=== PATIENT | female | born 2005 | race African-American/Black ===

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

== ENCOUNTER 2024-01-22 23:07 | Emergency (ER) | payer OTHER, SELFPAY ==
[2024-01-22] MEDS ORDERED: NA CHLORIDE 0.9% 1,000 ML ONE (23:43)
[2024-01-23 00:01] LABS: Absolute Eosinophils 0.2 K/uL (0-0.5); Absolute Lymphocytes (CBC) 2.2 K/uL (0.7-4.9); Absolute Monocytes 0.2 K/uL (0.1-1.3); Absolute Neutrophil 2.3 K/uL (1.8-8.0); Basophils % 0.5 % (0-1.3); Eosinophils % 3.3 % (0-4.4); Hematocrit 42.8 % (36.0-45.0); Hemoglobin 14.2 g/dL (12.0-15.0); Lymphocytes % 44.5 % (15.3-44.8); MCH 30.2 pg (27.0-35.0); MCHC 33.3 g/dL (32.0-36.0); MCV 90.7 fL (80-100); MPV 7.9 fL (7.6-11.3); Monocytes % 4.7 % (3.3-12.3); Platelets 271 thou/uL (152-406); RBC Red Blood Cell Count 4.72 M/uL (3.86-4.86); Red Cell Distribution Width 13.2 % (12.1-15.2)
[2024-01-23 00:14] LABS: AST/SGOT 11 U/L (15-37); Albumin/Globulin Ratio 1.1 (1.1-1.8); Alkaline Phosphatase 72 U/L (45-117); Anion Gap 10.7 mEq/L (5.0-15.0); BUN Blood Urea Nitrogen 8 mg/dL (7-18); Bicarbonate 22 mEq/L (21-32); Bilirubin Total 1.1 mg/dL (0.2-1.0); Globulin 3.7 g/dL (2.3-3.5); Glomerular Filtration Rate 126 ml/min (=/>90); Glucose Level 89 mg/dL (74-106); Lipase 31 U/L (13-75); Potassium 3.7 mEq/L (3.5-5.1); Protein, Total 7.7 g/dL (6.4-8.2); Sodium Level 140 mEq/L (136-145)
[2024-01-23 00:19] LABS: ALT/SGPT < 14 U/L (13-56)
[2024-01-23 00:23] LABS: SARS-CoV-2 Antigen CONTROL BLUE LINE VIS/BG OK; SARS-CoV-2 Antigen Rapid Res Negative (Negative)
--- NOTE | 2024-01-23 00:33 | ER ---
Nurse's Notes [facility] Name: Elizabeth Devlin Age: 18 yrs Sex: Female : 2005 Arrival Date: 01/22/2024 Time: 23:07 Bed 5 Private MD: Diagnosis: Abdominal pain, Generalized Presentation: 01/21 23:17 Chief complaint: Parent and/or Guardian states: mother states that pt has had n/d for bm8 two days and night. she is keeping her hydrated but she seems like she is still in pain. Coronavirus screen: Vaccine status: Patient reports receiving the 2nd dose of the covid vaccine. At this time, the client does not indicate any symptoms associated with coronavirus-19. Ebola Screen: Patient negative for fever greater than or equal to 101.5 degrees Fahrenheit, and additional compatible Ebola Virus Disease symptoms Patient denies exposure to infectious person. Patient denies travel to an Ebola-affected area in the 21 days before illness onset. No symptoms or risks identified at this time. Initial Sepsis Screen: Does the patient meet any 2 criteria? No. Patient's initial sepsis screen is negative. Does the patient have a suspected source of infection? No. Patient's initial sepsis screen is negative. Risk Assessment: Do you want to hurt yourself or someone else? Patient reports no desire to harm self or others. Onset of symptoms was January 20, 2024. 23:17 Method Of Arrival: Ambulatory bm8 23:17 Acuity: HARIS 3 bm8 Triage Assessment: 23:19 General: Appears in no apparent distress. comfortable, Behavior is calm, cooperative, bm8 appropriate for age. Pain: Denies pain. EENT: No deficits noted. No signs and/or symptoms were reported regarding the EENT system. Neuro: Level of Consciousness is awake, alert, obeys commands, Oriented to person, place, time, situation. Cardiovascular: Capillary refill < 3 seconds Patient's skin is warm and dry. Respiratory: Airway is patent Trachea midline Respiratory effort is even, unlabored, Respiratory pattern is regular, symmetrical. GI: Abdomen is flat, non-distended, Bowel sounds present X 4 quads. Abd is soft and non tender X 4 quads. : No signs and/or symptoms were reported regarding the genitourinary system. Derm: No signs and/or symptoms reported regarding the dermatologic system. Musculoskeletal: No signs and/or symptoms reported regarding the musculoskeletal system. 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 - Infectious Disease History:: Denies. - Social history:: Smoking status: Patient denies any tobacco usage or history of. Patient/guardian denies using alcohol, street drugs. Screenin:[address] [facility] ED Fall Risk Assessment (Adult) History of falling in the last 3 months, tm6 including since admission No falls in past 3 months (0 pts) Confusion or Disorientation No (0 pts) Intoxicated or Sedated No (0 pts) Impaired Gait No (0 pts) Mobility Assist Device Used No (0 pt) Altered Elimination No (0 pt) Score/Fall Risk Level 0 - 2 = Low Risk Oriented to surroundings, Maintained a safe environment, Educated pt \T\ family on fall prevention, incl call for assistance when getting out of bed. Abuse screen: Denies threats or abuse. Denies injuries from another. Nutritional screening: No deficits noted. Tuberculosis screening: No symptoms or risk factors identified. Assessment: 23:45 General: Appears in no apparent distress. Behavior is calm, cooperative. Pain: tm6 Complains of pain in right upper quadrant and left upper quadrant. Neuro: Level of Consciousness is awake, alert, obeys commands, Oriented to person, non-verbal. Cardiovascular: Patient's skin is warm and dry. Respiratory: Airway is patent Respiratory effort is even, unlabored, Respiratory pattern is regular, symmetrical. GI: Abdomen is flat, non-distended, Abd is soft Abdomen is tender to palpation in right upper quadrant and left upper quadrant Reports upper abdominal pain, diarrhea. : No signs and/or symptoms were reported regarding the genitourinary system. EENT: No signs and/or symptoms were reported regarding the EENT system. Derm: No signs and/or symptoms reported regarding the dermatologic system. Musculoskeletal: No signs and/or symptoms reported regarding the musculoskeletal system. 01/22 00:43 Reassessment: Patient and/or family updated on plan of care and expected duration. Pain pc2 level reassessed. Discharge pending completion of IV fluids. 01:28 Reassessment: Patient appears in no apparent distress at this time. Patient and/or tm6 family updated on plan of care and expected duration. Pain level reassessed. Patient is alert, oriented x 3, equal unlabored respirations, skin warm/dry/pink. Vital Signs: 01/21 23:17 BP 124 / 88; Pulse 101; Resp 18; Temp 97.6; Pulse Ox 100% ; Weight 68.04 kg; Height 0 bm8 ft. 2 in. ; Pain 0/10; 01/22 00:23 BP 118 / 75; Pulse 92; Resp 18; Pulse Ox 100% on R/A; pc2 01:27 BP 107 / 79; Pulse 97; Resp 17; Temp 97.6(TE); Pulse Ox 100% on R/A; Pain 0/10; tm6 01/21 23:17 Body Mass Index 27473.48 (68.04 kg, 7 cm) - Percentile 99.8 % bm8 01/21 23:17 Pain Scale: Non-Verbal bm8 01:27 Pain Scale: Adult tm6 ED Course: 01/21 23:10 Patient arrived in ED. jj6 23:10 Maliha Garza FNP-C is [facility] kb 23:10 Mode Victor MD is Attending Physician. kb 23:19 Triage completed. bm8 23:19 Arm band placed on right wrist. EKG completed in triage. Results shown to MD. bm8 23:26 Terry Heart, RN is Primary Nurse. tm6 23:41 CBC with Diff Sent. tm6 23:41 CMP Sent. tm6 23:41 Lipase Sent. tm6 23:41 SARS-COV-2 Antigen Rapid Sent. tm6 23:41 Flu Sent. tm6 23:45 Patient has correct armband on for positive identification. Bed in low position. Call tm6 light in reach. Side rails up X 1. Adult w/ patient. Provided Education on: use of call guevara. Client placed on continuous cardiac and pulse oximetry monitoring. NIBP monitoring applied. Pulse ox on. NIBP on. Door closed. Noise minimized. Warm blanket given. 23:45 Missed attempt(s): 22 gauge in right antecubital area. Bleeding controlled, band aid tm6 applied, catheter tip intact. 23:55 Missed attempt(s): 20 gauge in left antecubital area. Bleeding controlled, band aid pc2 applied, catheter tip intact. 01/22 00:02 Inserted saline lock: 22 gauge in right hand, using aseptic technique. pc2 01:28 No provider procedures requiring assistance completed. IV discontinued, intact, tm6 bleeding controlled, No redness/swelling at site. Pressure dressing applied. Administered Medications: 00:02 Drug: NS 0.9% IV 1000 ml IV at 1000 ml once Route: IV; Rate: 1000 ml; Site: right hand; pc2 01:28 Follow up: IV Status: Completed infusion; IV Intake: 1000ml tm6 Medication: 01/21 23:45 VIS not applicable for this client. tm6 Intake: 01/22 01:28 IV: 1000ml; Total: 1000ml. tm6 Outcome: 00:33 Discharge ordered by . kb 01:29 Discharged to home ambulatory, with family, tm6 01:29 Condition: stable 01:29 Discharge instructions given to patient, family, Instructed on discharge instructions, follow up and referral plans. Demonstrated understanding of instructions, follow-up care, 01:29 Patient left the ED. tm6 Signatures: Maliha Garza, TRUCK MECHANIC APPRENTICE-Barron HERNANDEZP-Charlene Lora jj6 Terry Heart RN RN tm6 Troy Encarnacion RN RN bm8 Evelin howard, RN RN pc2
--- NOTE | 2024-01-23 00:33 | EDPHYS ---
Physician Documentation [facility] Name: Elizabeth Devlin Age: 18 yrs Sex: Female : 2005 Arrival Date: 01/22/2024 Time: 23:07 Bed 5 Private MD: ED Physician Mode Victor HPI: 01/21 23:29 This 18 yrs old Black Female presents to ER via Ambulatory with complaints of Abdominal kb Pain. 23:29 Pt is a 18 year old female who presents for abd pain. Mother states pt had an episode kb of diarrhea on so she gave some immodium and pt hasn't had any diarrhea since then. Denies nausea, vomiting, fever. States pt is nonverbal so it is hard to understand what is going on. States pt hasn't been sleeping so pt keeps waking her up telling her about diarrhea. States she doesn't know what else to do so she brought her in to make pt feel better. . 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 - Infectious Disease History:: Denies. - Social history:: Smoking status: Patient denies any tobacco usage or history of. Patient/guardian denies using alcohol, street drugs. ROS: 23:31 Constitutional: As per HPI kb Exam: 23:31 Constitutional: This is a well developed, well nourished patient who is awake, alert, kb and in no acute distress. Head/Face: Normocephalic, atraumatic. ENT: Moist Mucous membranes Cardiovascular: Regular rate Respiratory: Respirations even and unlabored. No increased work of breathing. Talking in full sentences Abdomen/GI: Soft, non-tender. No distention Skin: Warm, dry with normal turgor. Normal color. MS/ Extremity: Pulses equal, no cyanosis. Neurovascular intact. Full, normal range of motion. 23:31 Neuro: Exam negative for acute changes, Vital Signs: 23:17 BP 124 / 88; Pulse 101; Resp 18; Temp 97.6; Pulse Ox 100% ; Weight 68.04 kg; Height 0 bm8 ft. 2 in. ; Pain 0/10; 01/22 00:23 BP 118 / 75; Pulse 92; Resp 18; Pulse Ox 100% on R/A; pc2 01:27 BP 107 / 79; Pulse 97; Resp 17; Temp 97.6(TE); Pulse Ox 100% on R/A; Pain 0/10; tm6 01/21 23:17 Body Mass Index 43108.48 (68.04 kg, 7 cm) - Percentile 99.8 % bm8 01/21 23:17 Pain Scale: Non-Verbal bm8 01:27 Pain Scale: Adult tm6 MDM: 01/21 23:10 Patient medically screened. kb 23:31 Data reviewed: vital signs, nurses notes. kb 01/22 00:32 Differential diagnosis: non-specific abd pain, diarrhea. Test considered but Not kb performed: CT: ct abd considered, but pt has no abd tenderness, afebrile. Historians other than the Patient: Parent: mother. Counseling: I had a detailed discussion with the patient and/or guardian regarding the historical points, exam findings, and any diagnostic results supporting the discharge/admit diagnosis, lab results, the need for outpatient follow up, a family practitioner, to return to the emergency department if symptoms worsen or persist or if there are any questions or concerns that arise at home. 01/21 23:15 Order name: CBC with Diff; Complete Time: 00:20 kb 01/21 23:15 Order name: CMP; Complete Time: 00:20 kb 01/21 23:15 Order name: Lipase; Complete Time: 00:20 kb 01/21 23:15 Order name: Flu; Complete Time: 00:26 kb 01/21 23:15 Order name: SARS-COV-2 Antigen Rapid; Complete Time: 00:26 kb 01/21 23:15 Order name: IV Saline Lock; Complete Time: 00:03 kb 01/21 23:15 Order name: Labs collected and sent; Complete Time: 23:42 kb Administered Medications: 00:02 Drug: NS 0.9% IV 1000 ml IV at 1000 ml once Route: IV; Rate: 1000 ml; Site: right hand; pc2 01:28 Follow up: IV Status: Completed infusion; IV Intake: 1000ml tm6 Disposition Summary: 01/23/24 00:33 Discharge Ordered Notes: Location: Home kb Condition: Stable kb Diagnosis - Abdominal pain, Generalized kb Followup: kb - With: Emergency Department - When: As needed - Reason: Worsening of condition Followup: kb - With: Private Physician - When: 2 - 3 days - Reason: Recheck today's complaints, Continuance of care, Re-evaluation by your physician Discharge Instructions: - Discharge Summary Sheet kb - Abdominal Pain, Adult, [id number] kb Forms: - Medication Reconciliation Form kb - Antibiotic Education kb - Prescription Opioid Use kb - Patient Portal Instructions kb - Leadership Thank You Letter kb Signatures: Dispatcher [employer] EDMaliha Ramsey, KATEY-Barron DEL TORO-Troy Glynn, RN RN bm8 Evelin howard, RN RN pc2 Terry Heart RN tm6 Corrections: (The following items were deleted from the chart) 01/21 23:16 23:16 CBC+H.LAB.BRZ ordered. EDMS EDMS 23:16 23:16 COMPREHENSIVE METABOLIC PANEL+C.LAB.BRZ ordered. EDMS EDMS 23:16 23:16 LIPASE+C.LAB.BRZ ordered. EDMS EDMS 23:16 23:16 Test, Urine+UC.LAB.BRZ ordered. EDMS EDMS 23:16 23:16 Urinalysis+U.LAB.BRZ ordered. EDMS EDMS 23:16 23:16 Influenza Screen (A \T\ B)+BA.LAB.BRZ ordered. EDMS EDMS 23:16 23:16 SARS-COV-2 Antigen Rapid+I.LAB.BRZ ordered. EDMS EDMS
[2024-01-23 01:56] VITALS: BP 107/79; TEMP 97.6; O2SAT 100
== END 2024-01-23 01:29 | disposition home or self-care (01) ==
LOC: ER 23:07
DX: R10.84 Generalized abdominal pain (principal); R19.7 Diarrhea, unspecified; Z11.52 Encounter for screening for COVID-19
CPT/HCPCS: 36415; 80053; 83690; 85025; 87804; 87811; 96360; 99284; J7030

== ENCOUNTER 2024-02-04 11:41 | Emergency (ER) | payer SELFPAY ==
--- OUTSIDE RECORDS SUMMARY | 2024-02-04 11:44 | XMS REPORT | Continuity of Care Document ---
Author Name Unknown Address [address] [place] [address] [facility] thconnect Address [address] [place] [address] Care Team Providers Care Emr Specialist Name Role Phone PCP, PATIENT DOES NOT HAVE A Primary Care Physic tyson Unavailable RON ALEX Attending Clinician Unavailable DANIEL JACQUES Attending Clinician DANIEL Lux Attending Clinician Krissy krishna Nurse, [facility] Attending Clinician Unavailable Vinay Smallwood MD Attending Clinician [phone] VINAY SMALLWOOD Attending Clinician Unavailable Kitty Donaldson MD Attending Clinician [phone] Rupert Coughlin NP Attending Clinician [phone] RUPERT COUGHLIN Attending Clinician Unavailaniceto umanzor Doctor Unassigned, [place] Attending Clinician U SG Jeffrey Attending Clinician Unavail able Payers Payer Name Policy Type Policy Number Effective Date Expirati on Date Source Problems Condition Name Condition Details Condition Category Status Onset Date Resolution Date Last Treatment Date Treating Clinician Comments Source Menorrhagi a with regular cycle Menorrhagi a with regular cycle Disease Active 12-09 00:00: 00 [facility] 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 12-09 00:00: 00 [facility] Family history of blood clots Family history of blood clots Disease Active 12-09 00:00: 00 [facility] Allergies, Adverse Reactions, Alerts Allergy Name Allergy Type Status Severity Reaction(s) Onset Date Inactive Date Treating Clinician Comments Source NO KNOWN ALLERGIE S Drug Class Active [facility] Social History Social Habit Start Date Stop Date Quantity Comments Source [facility] Alcohol intake 2023-11-21 00:00:00 2023-11-21 00:00:00 Current non-drinker of alcohol (finding) [facility] History of Social function 2023-11-18 00:00:00 2023-11-18 00:00:00 [facility] Exposure to SARS-CoV-2 (event) 2022-11-28 00:00:00 2022-12-08 13:33:[address] [facility] Tobacco use and exposure 2022-12-08 00:00:00 2022-12-08 00:00:00 Smokeless tobacco non-user [facility] Tobacco Comment 2022-12-08 00:00:00 2022-12-08 00:00:[address] [facility] Sex Assigned At 2005 00:00:00 2005 00:00:00 [facility] Smoking Status Start Date Stop Date Source Never smoked tobacco [facility] Medications Ordered Medication Name Filled Medication Name Start Date Stop Date Current Medication? Ordering Clinician Indication Dosage Frequency Signature (SIG) Comments Components Source medroxyPROG ESTERone (DEPO-PROVE RA) injection 150 mg 11-17 14:15: 00 11-17 13:27 :00 No [id number] 150mg 150 mg, Intramuscu lar, ONCE, 1 dose, On Tue11/18/23 at 0915, Routine [facility] medroxyPROG ESTERone (DEPO-PROVE RA) injection 150 mg 08-26 15:15: 00 08-26 14:22 :00 No [id number] 150mg [facility] fluticasone propionate 110 mcg/actuati on inhaler 08-12 00:00: 00 Yes INHALE 1 PUFF BY MOUTH 2 TIMES PER DAY [facility] medroxyPROG ESTERone (DEPO-PROVE RA) injection 150 mg 2022-08 0 14:45: 00 06-03 14:06 :00 No [id number] 150mg [facility] medroxyPROG ESTERone (DEPO-PROVE RA) injection 150 mg 03-07 20:30: 00 03-07 19:42 :00 No [id number] 150mg [facility] levalbutero l 0.31 mg/3 mL nebulizer solution 03-07 14:41: 29 Yes 45mg Inhale 45 mg. [facility] medroxyPROG ESTERone (DEPO-PROVE RA) injection 150 mg 12-13 14:45: 00 12-13 13:53 :00 No [id number] 150mg [facility] levalbutero l 0.31 mg/3 mL nebulizer solution 12-13 08:39: 47 Yes 45mg Inhale 45 mg. [facility] montelukast 10 mg tablet 12-08 13:58: 04 Yes 10mg Take 1 tablet by mouth. [facility] loratadine (CLARITIN ORAL) 12-08 13:57: 46 Yes Take by mouth. [facility] beclomethas one dipropionat e (QVAR INHALE) 12-08 13:57: 46 Yes Inhale. [facility] estradiol (ESTRACE) 1 mg tablet 10-30 00:00: 00 03-07 00:00 :00 No 1mg Take 1 tablet by mouth daily. [facility] beclomethas one dipropionat e (QVAR INHALE) 09-14 14:40: 51 Yes Inhale. [facility] loratadine (CLARITIN ORAL) 09-14 14:39: 45 Yes Take by mouth. [facility] montelukast 10 mg tablet 2019-0 2-07 14:39: 45 Yes 10mg Take 10 mg by mouth. [facility] incontinenc e alarms (MISC. DEVICES MISC) 2014-0 05-05 00:00: 00 Yes 1{devic e} 1 Device. [facility] Immunizations Ordered Immunization Name Filled Immunization Name Date Status Comments Source SARS-COV-2 COVID-19 PFIZER VACCINE 2020-12-24 00:00:[address] [facility] SARS-COV-2 COVID-19 PFIZER VACCINE 2020-12-24 00:00:[address] [facility] SARS-COV-2 COVID-19 PFIZER VACCINE 2020-12-24 00:00:[address] [facility] SARS-COV-2 COVID-19 PFIZER VACCINE 2020-12-24 00:00:[address] [facility] SARS-COV-2 COVID-19 PFIZER VACCINE 2020-12-24 00:00:[address] [facility] SARS-COV-2 COVID-19 PFIZER VACCINE 2020-12-24 00:00:[address] [facility] SARS-COV-2 COVID-19 PFIZER VACCINE 2020-12-24 00:00:[address] [facility] SARS-COV-2 COVID-19 PFIZER VACCINE 2020-12-24 00:00:[address] [facility] SARS-COV-2 COVID-19 PFIZER VACCINE 2020-12-24 00:00:[address] [facility] SARS-COV-2 COVID-19 PFIZER VACCINE 2020-12-03 00:00:[address] [facility] SARS-COV-2 COVID-19 PFIZER VACCINE 2020-12-03 00:00:[address] [facility] SARS-COV-2 COVID-19 PFIZER VACCINE 2020-12-03 00:00:[address] [facility] SARS-COV-2 COVID-19 PFIZER VACCINE 2020-12-03 00:00:[address] [facility] SARS-COV-2 COVID-19 PFIZER VACCINE 2020-12-03 00:00:[address] [facility] SARS-COV-2 COVID-19 PFIZER VACCINE 2020-12-03 00:00:[address] [facility] SARS-COV-2 COVID-19 PFIZER VACCINE 2020-12-03 00:00:[address] [facility] SARS-COV-2 COVID-19 PFIZER VACCINE 2020-12-03 00:00:[address] [facility] SARS-COV-2 COVID-19 PFIZER VACCINE 2020-12-03 00:00:[address] [facility] SARS-COV-2 COVID-19 [address] V[address] Unknown Completed [facility] SARS-COV-2 COVID-19 [address] Unknown Com[address] [facility] SARS-COV-2 COVID-19 [address] VACC[address] Unknown Completed [facility] SARS-COV-2 COVID-19 [address] VACC[address] Unknown Completed [facility] SARS-COV-2 COVID-19 [address] VACC[address] Unknown Completed [facility] SARS-COV-2 COVID-19 [address] VACC[address] Unknown Completed [facility] SARS-COV-2 COVID-19 [address] V[address] Unknown Com[address] [facility] SARS-COV-2 COVID-19 [address] VACC[address] Unknown Completed [facility] SARS-COV-2 COVID-19 [address] VACC[address] Unknown Completed [facility] SARS-COV-2 COVID-19 [address] VACCINE Unknown Completed [facility] SARS-COV-2 COVID-19 [address] VACC[address] Unknown Completed [facility] SARS-COV-2 COVID-19 [address] V[address] Unknown Completed [facility] SARS-COV-2 COVID-19 [address] VACC[address] Unknown Completed [facility] SARS-COV-2 COVID-19 [address] VACC[address] Unknown Completed [facility] SARS-COV-2 COVID-19 [address] V[address] Unknown Completed [facility] SARS-COV-2 COVID-[address] V[address] Unknown Completed [facility] Vital Signs Vital Name Observation Time Observation Value Comments S ource Systolic blood pressure 2023-11-18 13:20:00 112 mm[Hg] [facility] Diastolic blood pressure 2023-11-18 13:20:00 75 mm[Hg] [facility] Heart rate 2023-11-18 13:20:00 87 /[facility] temperature 2023-11-18 13:20:[address] [facility] Respiratory rate 2023-11-18 13:20:00 16 /min [facility] Body height 2023-11-18 13:20:00 157.5 cm [facility] Body weight 2023-11-18 13:20:00 61.689 kg [facility] BMI 2023-11-18 13:20:00 24.87 kg/m2 [facility] Oxygen saturation in Arterial blood by Pulse oximetry 2023-11-18 13:20:00 99 /min [facility] Systolic blood pressure 2023-08-26 14:20:00 127 mm[Hg] [facility] Diastolic blood pressure 2023-08-26 14:20:00 85 mm[Hg] [facility] Heart rate 2023-08-26 14:20:00 93 /min [facility] Body temperature 2023-08-26 14:20:[address] [facility] Respiratory rate 2023-08-26 14:20:00 16 /min [facility] Body height 2023-08-26 14:20:00 157.5 cm [facility] Body weight 2023-08-26 14:20:00 62.37 kg [facility] BMI 2023-08-26 14:20:00 25.15 kg/m2 [facility] Body mass index (BMI) [Percentile] Per age and sex 2023-08-26 14:20:00 80.93 % [facility] Oxygen saturation in Arterial blood by Pulse oximetry 2023-08-26 14:20:00 99 /min [facility] Systolic blood pressure 2023-06-03 13:56:00 124 mm[Hg] [facility] Diastolic blood pressure 2023-06-03 13:56:00 82 mm[Hg] [facility] Heart rate 2023-06-03 13:56:00 82 /min [facility] acute hospital Body temperature 2023-06-03 13:56:[address] [facility] Respiratory rate 2023-06-03 13:56:00 16 /min [facility] Body height 2023-06-03 13:56:00 157.5 cm [facility] Body weight 2023-06-03 13:56:00 59.557 kg [facility] BMI 2023-06-03 13:56:00 24.02 kg/m2 [facility] Body mass index (BMI) [Percentile] Per age and sex 2023-06-03 13:56:00 74.69 % [facility] Oxygen saturation in Arterial blood by Pulse oximetry 2023-06-03 13:56:00 98 /min [facility] Systolic blood pressure 2023-03-07 19:40:00 127 mm[Hg] [facility] Diastolic blood pressure 2023-03-07 19:40:00 81 mm[Hg] [facility] Heart rate 2023-03-07 19:40:00 116 /min General acute hospital Body temperature 2023-03-07 19:40:[address] [facility] Respiratory rate 2023-03-07 19:40:00 16 /min [facility] Body height 2023-03-07 19:40:00 157.5 cm [facility] Body weight 2023-03-07 19:40:00 58.559 kg [facility] BMI 2023-03-07 19:40:00 23.61 kg/m2 [facility] Body mass index (BMI) [Percentile] Per age and sex 2023-03-07 19:40:00 72.29 % [facility] Oxygen saturation in Arterial blood by Pulse oximetry 2023-03-07 19:40:00 97 /min [facility] Systolic blood pressure 2022-12-13 13:40:00 120 mm[Hg] [facility] Diastolic blood pressure 2022-12-13 13:40:00 76 mm[Hg] [facility] Heart rate 2022-12-13 13:40:00 80 /min [facility] acute hospital Respiratory rate 2022-12-13 13:40:00 16 /min [facility] Body height 2022-12-13 13:40:00 157.5 cm [facility] Body weight 2022-12-13 13:40:00 56.382 kg [facility] BMI 2022-12-13 13:40:00 22.73 kg/m2 [facility] Body mass index (BMI) [Percentile] Per age and sex 2022-12-13 13:40:00 65.42 % [facility] Oxygen saturation in Arterial blood by Pulse oximetry 2022-12-13 13:40:00 98 /min [facility] Systolic blood pressure 2022-12-08 18:57:00 112 mm[Hg] [facility] Diastolic blood pressure 2022-12-08 18:57:00 72 mm[Hg] [facility] Heart rate 2022-12-08 18:57:00 95 /min General acute hospital Respiratory rate 2022-12-08 18:57:00 18 /min [facility] Body height 2022-12-08 18:57:00 157.5 cm [facility] Body weight 2022-12-08 18:57:00 57.153 kg [facility] BMI 2022-12-08 18:57:00 23.05 kg/m2 [facility] Body mass index (BMI) [Percentile] Per age and sex 2022-12-08 18:57:00 68.38 % [facility] Procedures Procedure Date / Time Performed Performing Clinicia n Source POCT TEST 2022-12-13 00:00:[address] [facility] ASSIGNMENT OF BENEFITS 2022-12-08 18:31:03 Docto r Unassigned, [place] [facility] Encounters Start Date/Time End Date/Time Encounter Type Admission Type Attending Clinicians Care Facility Care Department Encounter ID Source 2023-11-18 08:30:00 2023-11-18 08:30:00 Nurse Visit Nurse, Peg [facility] Vinay Smallwood [facility] [id number] 350.1.13.10 [id number] 134 [id number] [facility] 2023-11-18 08:30:00 2023-11-18 08:20:27 Outpatient R VINAY SMALLWOOD [facility] [id number] [facility] 2023-11-18 00:00:00 2023-11-18 00:00:00 Letter (Out) Kitty Donaldson [facility] [id number] 350.1.13.10 [id number] [id number] [facility] 2023-08-26 08:30:00 2023-08-26 08:30:00 Nurse Visit Nurse, [facility] Vinay Smallwood [facility] [id number] 350.1.13.10 4.2.7.2.686 [id number] [facility] 2023-08-26 08:30:00 2023-08-26 08:21:56 Outpatient R CL VINAY [facility] [id number] [facility] 2023-08-26 00:00:00 2023-08-26 00:00:00 Letter (Out) Cl [facility] 1.20.114 350.1.13.10 [id number] [id number] [facility] 2023-06-08 09:30:00 2023-06-08 09:30:00 Outpatient R [facility] [id number] [facility] 2023-06-08 09:30:00 2023-06-08 09:30:00 Outpatient R [facility] [id number] [facility] 2023-06-03 10:45:00 2023-06-03 10:45:00 Nurse Visit Nurse, [facility] Daniel Borges [facility] 1.2840.114 350.1.13.10 4.2.7.2.686 [id number] [facility] 2023-06-03 10:45:00 2023-06-03 08:56:37 Outpatient R DANIEL BORGES MARISOL [facility] [id number] [facility] 2023-06-03 00:00:00 2023-06-03 00:00:00 Letter (Out) Priscilla Borgessol [facility] [id number] 350.1.13.10 4.2.7.2.686 [id number] 134 [id number] [facility] 2023-06-02 00:00:00 2023-06-02 00:00:00 Telephone Chhaya negrete [facility] 1.2.840.114 350.1.13.10 4.2.7.2.686 [id number] 134 [id number] [facility] 2023-05-30 15:45:00 2023-05-30 15:45:00 Outpatient R [facility] [id number] [facility] 2023-05-26 00:00:00 2023-05-26 00:00:00 [address] Smallwood Igor [facility] 1.2.840.114 350.1.13.10 4.2.7.2.686 [id number] [facility] 2023-03-07 16:00:00 2023-03-07 16:00:00 Nurse Visit Nurse, Peg [facility] 1.2.840.114 350.1.13.10 4.2.7.2.686 [id number] [facility] 2023-03-07 16:00:00 2023-03-07 14:38:42 [facility] [id number] [facility] 2022-12-13 09:00:00 2022-12-13 09:00:00 [facility] 1.2.840.114 350.1.13.10 4.2.7.2.686 [id number] [facility] 2022-12-13 09:00:00 2022-12-13 08:51:53 Outpatient R RUPERT COUGHLIN CHERYAL [facility] [id number] [facility] 2022-12-13 08:00:00 2022-12-13 08:00:00 Outpatient R [facility] [id number] [facility] 2022-12-13 00:00:00 2022-12-13 00:00:00 Letter (Out) Caprice [facility] [id number] 350.1.13.10 4.2.7.2.686 [id number] [facility] 2022-12-09 00:00:00 2022-12-09 00:00:00 Letter (Out) Caprice [facility] 1.2.840.114 350.1.13.10 4.2.7.2.686 [id number] [facility] 2022-12-09 00:00:00 2022-12-09 00:00:00 Telephone Martínashley [facility] 1.2.840.114 350.1.13.10 4.2.7.2.686 [id number] [facility] 2022-12-09 00:00:00 2022-12-09 00:00:00 Letter (Out) Caprice [facility] 1.2.840.114 350.1.13.10 4.2.7.2.686 [id number] [facility] 2022-12-08 14:00:00 2022-12-08 14:15:07 Outpatient R RUPERT COUGHLIN KATRUPERT EUBANKS [facility] [id number] [facility] 2022-12-08 14:00:00 2022-12-08 14:15:07 Office Visit Rupert [facility] 1.2.840.114 350.1.13.10 4.2.7.2.686 [id number] 134 [id number] [facility] 2022-12-08 00:00:00 2022-12-08 00:00:00 Orders Only Doctor Unassigned, [place] [facility] 1.2.840.114 350.1.13.10 4.2.7.2.686 [id number] [facility] 2020-12-24 08:30:00 2020-12-24 08:30:00 Outpatient SG RENEE [facility] [id number] [facility] 2020-12-03 11:30:00 2020-12-03 11:30:00 Outpatient SG RENEE [facility] [id number] [facility] 2020-12-03 09:10:00 2020-12-03 09:10:00 Outpatient [facility] [id number] [facility] Results Test Description Test Time Test Comments Results Result Co mments Source [facility]
--- NOTE | 2024-02-04 13:07 | RAD REPORT ---
EXAM DESCRIPTION: CT - Head Brain Wo Cont - 02/04/2024 12:30 pm CLINICAL HISTORY: HEADACHE COMPARISON: No comparisons TECHNIQUE: Noncontrast head CT images were obtained without IV contrast. Multiplanar reformats were generated and reviewed. All CT scans are performed using dose optimization technique as appropriate and may include automated exposure control or mA/KV adjustment according to patient size. FINDINGS: No intracranial hemorrhage, mass, or edema. Midline structures are unremarkable. Normal ventricular caliber for age. Crow-white matter differentiation is preserved, without evidence of acute infarct. No abnormal extra- axial fluid collections. Mastoid air cells and visualized portions of the paranasal sinuses are clear. No acute bony findings. IMPRESSION: No evidence of an acute intracranial process.
--- NOTE | 2024-02-04 13:33 | EDPHYS ---
Physician Documentation [facility] Name: Elizabeth Devlin Age: 18 yrs Sex: Female : 2005 Arrival Date: 02/04/2024 Time: 11:41 Bed 15 Private MD: ED Physician Zak Verdugo HPI: 02/03 13:28 This 18 yrs old Black Female presents to ER via Ambulatory with complaints of Headache. rn 13:28 The patient complains of pain to the forehead. The patient describes the headache as rn aching. Onset: The symptoms/episode began/occurred yesterday. Associated signs and symptoms: Pertinent negatives: altered mental status, dizziness, fever, neck stiffness, rash, vision changes, vision loss, vomiting, weakness, vertigo. Headache History: Denies prior headaches. The symptoms are alleviated by nothing. the symptoms are aggravated by nothing. The patient has not experienced similar symptoms in the past. Mother reports headache since yesterday. Took [id number] medication with some improvement but did not resolve. Patient is nonverbal so mother brought her in for evaluation. No fever. No neck stiffness. No vomiting. No history of seizures.. Historical: - Allergies: 12:11 No Known Allergies; cm10 - PMHx: 12:11 Asthma; Can only take liquid medication; Intellectual speech impediment disability; cm10 - PSHx: 12:11 foot sx; cm10 - Immunization history:: Adult Immunizations up to date. - Infectious Disease History:: Denies. - Social history:: Smoking status: Patient denies any tobacco usage or history of. - Family history:: not pertinent. - Hospitalizations: : No recent hospitalization is reported. ROS: 13:28 Constitutional: Negative for fever, chills, and weight loss, Neck: Negative for injury, rn pain, and swelling, Cardiovascular: Negative for chest pain, palpitations, and edema, Respiratory: Negative for shortness of breath, cough, wheezing, and pleuritic chest pain, Abdomen/GI: Negative for abdominal pain, nausea, vomiting, diarrhea, and constipation, MS/Extremity: Negative for injury and deformity, Skin: Negative for injury, rash, and discoloration, Neuro: Positive for headache Exam: 13:28 Constitutional: This is a well developed, well nourished patient who is awake, alert, rn and in no acute distress. Head/Face: Normocephalic, atraumatic. Eyes: Pupils equal round and reactive to light, extra-ocular motions intact. Lids and lashes normal. Conjunctiva and sclera are non-icteric and not injected. Cornea within normal limits. Periorbital areas with no swelling, redness, or edema. Neck: No meningismus Cardiovascular: tachycardic no pulse deficits. Respiratory: No increased work of breathing, no retractions or nasal flaring. Abdomen/GI: Soft, nontender Neuro: Awake and alert, GCS 15. Cranial nerves II-XII grossly intact. Motor strength 5/5 in all extremities. Sensory grossly intact. Cerebellar exam normal. Normal gait. Vital Signs: 12:11 BP 111 / 71; Pulse 106; Resp 18; Temp 98.7; Pulse Ox 100% on R/A; Weight 59.2 kg; cm10 Height 63 in. ; Pain 10/10; 13:43 BP 123 / 87; Pulse 101; Resp 19; Pulse Ox 100% ; as6 12:11 Body Mass Index 23.12 (59.20 kg, 160.02 cm) - Percentile 66.1 % cm10 12:11 Pain Scale: Adult cm10 Carly Coma Score: 13:28 Eye Response: spontaneous(4). Motor Response: obeys commands(6). Verbal Response: rn oriented(5). Total: 15. MDM: 11:48 Patient medically screened. rn 13:28 Differential diagnosis: migraine, neoplasm, sinusitis, tension headache, vasomotor rn headache. Data reviewed: vital signs, nurses notes, radiologic studies, CT scan, and as a result, I will discharge patient. Counseling: I had a detailed discussion with the patient and/or guardian regarding the historical points, exam findings, and any diagnostic results supporting the discharge/admit diagnosis, radiology results, the need for outpatient follow up, to return to the emergency department if symptoms worsen or persist or if there are any questions or concerns that arise at home. Response to treatment: the patient's symptoms have mildly improved after treatment, and as a result, I will discharge patient. Special discussion: I discussed with the patient/guardian in detail that at this point there is no indication for admission to the hospital. It is understood, however, that if the symptoms persist or worsen the patient needs to return immediately for re-evaluation. ED course: CT head images negative for acute abnormality. I have personally reviewed all of the results, including but not limited to imaging deemed necessary to safely discharge this patient at this time. All results given to and printed out for patient. I personally went over all the results with the patient and answered all questions. Patient will follow-up with PCP and or specialist as discussed. Return precautions given and understood.. 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
--- NOTE | 2024-02-04 13:33 | ER ---
Nurse's Notes [facility] Name: Elizabeth Devlin Age: 18 yrs Sex: Female : 2005 Arrival Date: 02/04/2024 Time: 11:41 Bed 15 Private MD: Diagnosis: Headache Presentation: 02/03 12:11 Chief complaint: Parent and/or Guardian states: Headache onset last night, no other cm10 symptoms. Coronavirus screen: Client denies travel out of the [place] in the last 14 days. At this time, the client does not indicate any symptoms associated with coronavirus-19. Ebola Screen: Patient denies travel to an Ebola-affected area in the 21 days before illness onset. No symptoms or risks identified at this time. Initial Sepsis Screen: Does the patient meet any 2 criteria? HR > 90 bpm. Does the patient have a suspected source of infection? No. Patient's initial sepsis screen is negative. Risk Assessment: Do you want to hurt yourself or someone else? Patient reports no desire to harm self or others. Onset of symptoms was February 04, 2024. 12:11 Method Of Arrival: Ambulatory cm10 12:11 Acuity: HARIS 3 cm10 Triage Assessment: 12:12 Headache History: Denies prior headaches. General: Appears in no apparent distress. cm10 comfortable, Behavior is calm, cooperative, appropriate for age. Neuro: No deficits noted. Level of Consciousness is awake, alert, obeys commands, Oriented to Appropriate for age. Respiratory: No deficits noted. Airway is patent Respiratory effort is even, unlabored, Respiratory pattern is regular, symmetrical. Historical: - Allergies: 12:11 No Known Allergies; cm10 - PMHx: 12:11 Asthma; Can only take liquid medication; Intellectual speech impediment disability; cm10 - PSHx: 12:11 foot sx; cm10 - Immunization history:: Adult Immunizations up to date. - Infectious Disease History:: Denies. - Social history:: Smoking status: Patient denies any tobacco usage or history of. - Family history:: not pertinent. - Hospitalizations: : No recent hospitalization is reported. Screenin:37 [facility] ED Fall Risk Assessment (Adult) History of falling in the last 3 months, hb including since admission No falls in past 3 months (0 pts) Confusion or Disorientation No (0 pts) Intoxicated or Sedated No (0 pts) Impaired Gait No (0 pts) Mobility Assist Device Used No (0 pt) Altered Elimination No (0 pt) Score/Fall Risk Level 0 - 2 = Low Risk Oriented to surroundings, Maintained a safe environment, Educated pt \T\ family on fall prevention, incl call for assistance when getting out of bed. Abuse screen: Denies threats or abuse. Denies injuries from another. Nutritional screening: No deficits noted. Tuberculosis screening: No symptoms or risk factors identified. Assessment: 13:43 Reassessment: Patient appears in no apparent distress at this time. as6 Vital Signs: 12:11 BP 111 / 71; Pulse 106; Resp 18; Temp 98.7; Pulse Ox 100% on R/A; Weight 59.2 kg; cm10 Height 63 in. ; Pain 10/10; 13:43 BP 123 / 87; Pulse 101; Resp 19; Pulse Ox 100% ; as6 12:11 Body Mass Index 23.12 (59.20 kg, 160.02 cm) - Percentile 66.1 % cm10 12:11 Pain Scale: Adult cm10 Carly Coma Score: 13:28 Eye Response: spontaneous(4). Motor Response: obeys commands(6). Verbal Response: rn oriented(5). Total: 15. ED Course: 11:44 Patient arrived in ED. gm2 11:48 Zak Verdugo MD is Attending Physician. rn 12:06 Paco Tabares, MAGGIE is Primary Nurse. bp 12:11 Triage completed. cm10 12:[address] via stretcher. cm10 12:12 Arm band placed on Patient placed in a hallway bed, on a stretcher, on pulse oximetry. cm10 12:32 CT Head Brain wo Cont In Process Unspecified. EDMS 12:37 Patient has correct armband on for positive identification. Provided Education on: use hb of call light. 13:43 No provider procedures requiring assistance completed. Patient did not have IV access as6 during this emergency room visit. Administered Medications: No medications were administered Medication: 12:37 VIS not applicable for this client. hb Outcome: 13:32 Discharge ordered by . rn 13:43 Discharged to home ambulatory, with family, as6 13:43 Condition: stable 13:43 Discharge instructions given to patient, Instructed on discharge instructions, follow up and referral plans. Demonstrated understanding of instructions, follow-up care, 13:44 Patient left the ED. as6 Signatures: Dispatcher [employer] EDMS Zak Verdugo MD MD rn Baxter, Heather RN RN Paco Fritz RN RN bp Slawson, Ashby, RN RN as6 Agustina Leger RN RN cm10 Yesica Lacey [facility]
[2024-02-04 14:02] VITALS: BP 123/87; TEMP 98.7; O2SAT 100
== END 2024-02-04 13:44 | disposition home or self-care (01) ==
LOC: ER 11:41
DX: R51.9 Headache, unspecified (principal)
CPT/HCPCS: 70450; 99284

== ENCOUNTER 2024-06-06 10:24 | Emergency (ER) | payer SELFPAY ==
--- OUTSIDE RECORDS SUMMARY | 2024-06-06 10:28 | XMS REPORT | Continuity of Care Document ---
Author Name Unknown Address [address] [place] [address] [facility] thconnect Address [address] [place] [address] Care Team Providers Care [employer]ist Name Role Phone Pcp, Patient Does Not Have A Primary Care Physic ytson Visit, [facility] Nurse Attending Clinician Karey Benoit Attending Clinician + Ron Borjas Attending Clinician [phone] KAREY GARDNER Attending Clinician Unavail able RON ORONA Attending Clinician Unavailable DANIEL JACQUES Attending Clinician DANIEL Lux Attending Clinician Krissy krishna Nurse, [facility] Attending Clinician Unavailable Vinay Smallwood MD Attending Clinician [phone] VINAY SMALLWOOD Attending Clinician Unavailable Kitty Donaldson MD Attending Clinician [phone] Rupert Coughlin NP Attending Clinician [phone] RUPERT COUGHLIN Attending Clinician Unavailaniceto noé Doctor Unassigned, Norlina Attending Clinician U [facility] Jeffrey Attending Clinician Unavail able Payers Payer Name Policy Type Policy Number Effective Date Expirati on Date Source Problems Condition Name Condition Details Condition Category Status Onset Date Resolution Date Last Treatment Date Treating Clinician Comments Source Menorrhagi a with regular cycle Menorrhagi a with regular cycle Disease Active 12-09 00:00: 00 [facility] 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 12-09 00:00: 00 [facility] Family history of blood clots Family history of blood clots Disease Active 12-09 00:00: 00 [facility] Allergies, Adverse Reactions, Alerts Allergy Name Allergy Type Status Severity Reaction(s) Onset Date Inactive Date Treating Clinician Comments Source NO KNOWN ALLERGIE S Drug Class Active [facility] Social History Social Habit Start Date Stop Date Quantity Comments Source Gender identity [facility] Alcoholic beverage intake 2024-05-16 00:00:00 2024-05-16 00:00:00 Current non-drinker of alcohol (finding) [facility] History of Social function 2024-02-22 00:00:00 2024-02-22 00:00:00 [facility] Alcohol intake 2023-11-21 00:00:00 2023-11-21 00:00:00 Current non-drinker of alcohol (finding) [facility] Exposure to SARS-CoV-2 (event) 2022-11-28 00:00:00 2022-12-08 13:33:00 Not sure [facility] Tobacco use and exposure 2022-12-08 00:00:00 2022-12-08 00:00:00 Smokeless tobacco non-user [facility] Tobacco Comment 2022-12-08 00:00:00 2022-12-08 00:00:00 No smoke exposure [facility] Sex assigned at 2004 00:00:00 2005 00:00:00 [facility] Smoking Status Start Date Stop Date Source Never smoked tobacco [facility] Medications Ordered Medication Name Filled Medication Name Start Date Stop Date Current Medication? Ordering Clinician Indication Dosage Frequency Signature (SIG) Comments Components Source medroxyPROG ESTERone (DEPO-PROVE RA) syringe 150 mg 02-21 15:45: 00 04-17 15:44 :00 No [id number] 150mg 150 mg, Intramuscu lar, [id number], 5 doses, First dose on Tue02/22/24 at 1045, Last dose on Tue01/23/25 at 1045, Routine [facility] albuterol sulfate (PROAIR HFA INHALE) 02-21 10:02: 58 Yes Inhale. [facility] levalbutero l 0.31 mg/3 mL nebulizer solution 02-21 10:02: 58 Yes 45mg Inhale 45 mg. [facility] medroxyPROG ESTERone (DEPO-PROVE RA) injection 150 mg 11-17 14:15: 00 11-17 13:27 :00 No [id number] 150mg 150 mg, Intramuscu lar, ONCE, 1 dose, On Tue11/18/23 at 0915, Routine [facility] medroxyPROG ESTERone (DEPO-PROVE RA) injection 150 mg 08-26 15:15: 00 08-26 14:22 :00 No [id number] 150mg [facility] fluticasone propionate 110 mcg/actuati on inhaler 08-12 00:00: 00 Yes INHALE 1 PUFF BY MOUTH 2 TIMES PER DAY [facility] medroxyPROG ESTERone (DEPO-PROVE RA) injection 150 mg 2022-08 14:45: 00 06-03 14:06 :00 No [id number] 150mg [facility] medroxyPROG ESTERone (DEPO-PROVE RA) injection 150 mg 03-07 20:30: 00 03-07 19:42 :00 No [id number] 150mg [facility] levalbutero l 0.31 mg/3 mL nebulizer solution 03-07 14:41: 29 Yes 45mg Inhale 45 mg. [facility] medroxyPROG ESTERone (DEPO-PROVE RA) injection 150 mg 12-13 14:45: 00 12-13 13:53 :00 No [id number] 150mg [facility] levalbutero l 0.31 mg/3 mL nebulizer solution 12-13 08:39: 47 Yes 45mg Inhale 45 mg. [facility] montelukast 10 mg tablet 12-08 13:58: 04 Yes 10mg Take 1 tablet by mouth. [facility] loratadine (CLARITIN ORAL) 12-08 13:57: 46 Yes Take by mouth. [facility] beclomethas one dipropionat e (QVAR INHALE) 12-08 13:57: 46 Yes Inhale. [facility] estradiol (ESTRACE) 1 mg tablet 10-30 00:00: 00 03-07 00:00 :00 No 1mg Take 1 tablet by mouth daily. [facility] beclomethas one dipropionat e (QVAR INHALE) 09-14 14:40: 51 Yes Inhale. [facility] loratadine (CLARITIN ORAL) 09-14 14:39: 45 Yes Take by mouth. [facility] montelukast 10 mg tablet 09-14 14:39: 45 Yes 10mg Take 10 mg by mouth. [facility] incontinenc e alarms (MISC. DEVICES MISC) 05-05 00:00: 00 Yes 1{devic e} 1 Device. [facility] Immunizations Ordered Immunization Name Filled Immunization Name Date Status Comments Source SARS-COV-2 COVID-19 PFIZER VACCINE 2020-12-24 00:00:00 Completed [facility] SARS-COV-2 COVID-19 PFIZER VACCINE 2020-12-24 00:00:00 Completed [facility] SARS-COV-2 COVID-19 PFIZER VACCINE 2020-12-24 00:00:00 Completed [facility] SARS-COV-2 COVID-19 PFIZER VACCINE 2020-12-24 00:00:00 Completed [facility] SARS-COV-2 COVID-19 PFIZER VACCINE 2020-12-24 00:00:00 Completed [facility] SARS-COV-2 COVID-19 PFIZER VACCINE 2020-12-24 00:00:00 Completed [facility] SARS-COV-2 COVID-19 PFIZER VACCINE 2020-12-24 00:00:00 Completed [facility] SARS-COV-2 COVID-19 PFIZER VACCINE 2020-12-24 00:00:00 Completed [facility] SARS-COV-2 COVID-19 PFIZER VACCINE 2020-12-24 00:00:00 Completed [facility] SARS-COV-2 COVID-19 PFIZER VACCINE 2020-12-03 00:00:00 Completed [facility] SARS-COV-2 COVID-19 PFIZER VACCINE 2020-12-03 00:00:00 Completed [facility] SARS-COV-2 COVID-19 PFIZER VACCINE 2020-12-03 00:00:00 Completed [facility] SARS-COV-2 COVID-19 PFIZER VACCINE 2020-12-03 00:00:00 Completed [facility] SARS-COV-2 COVID-19 PFIZER VACCINE 2020-12-03 00:00:00 Completed [facility] SARS-COV-2 COVID-19 PFIZER VACCINE 2020-12-03 00:00:00 Completed [facility] SARS-COV-2 COVID-19 PFIZER VACCINE 2020-12-03 00:00:00 Completed [facility] SARS-COV-2 COVID-19 PFIZER VACCINE 2020-12-03 00:00:00 Completed [facility] SARS-COV-2 COVID-19 PFIZER VACCINE 2020-12-03 00:00:00 Completed [facility] SARS-COV-2 COVID-19 PFIZER VACCINE Unknown Completed [facility] SARS-COV-2 COVID-19 PFIZER VACCINE Unknown Completed [facility] SARS-COV-2 COVID-19 PFIZER VACCINE Unknown Completed [facility] SARS-COV-2 COVID-19 PFIZER VACCINE Unknown Completed [facility] SARS-COV-2 COVID-19 PFIZER VACCINE Unknown Completed [facility] SARS-COV-2 COVID-19 PFIZER VACCINE Unknown Completed [facility] SARS-COV-2 COVID-19 PFIZER VACCINE Unknown Completed [facility] SARS-COV-2 COVID-19 PFIZER VACCINE Unknown Completed [facility] SARS-COV-2 COVID-19 PFIZER VACCINE Unknown Completed [facility] SARS-COV-2 COVID-19 PFIZER VACCINE Unknown Completed [facility] Vital Signs Vital Name Observation Time Observation Value Comments S ource Systolic blood pressure 2024-05-16 13:35:00 120 mm[Hg] [facility] Diastolic blood pressure 2024-05-16 13:35:00 73 mm[Hg] [facility] Heart rate 2024-05-16 13:35:00 81 /min [facility] Body temperature 2024-05-16 13:35:00 36.5 Nilda [facility] Respiratory rate 2024-05-16 13:35:00 19 /min [facility] Body height 2024-05-16 13:35:00 157.5 cm [facility] Body weight 2024-05-16 13:35:00 58.514 kg [facility] BMI 2024-05-16 13:35:00 23.59 kg/m2 [facility] Systolic blood pressure 2024-02-22 14:55:00 115 mm[Hg] [facility] Diastolic blood pressure 2024-02-22 14:55:00 77 mm[Hg] [facility] Heart rate 2024-02-22 14:55:00 85 /min [facility] Body temperature 2024-02-22 14:55:00 35.89 Nilda [facility] Respiratory rate 2024-02-22 14:55:00 18 /min [facility] Body height 2024-02-22 14:55:00 157.5 cm [facility] Body weight 2024-02-22 14:55:00 59.33 kg [facility] BMI 2024-02-22 14:55:00 23.92 kg/m2 [facility] Systolic blood pressure 2023-11-18 13:20:00 112 mm[Hg] [facility] Diastolic blood pressure 2023-11-18 13:20:00 75 mm[Hg] [facility] Heart rate 2023-11-18 13:20:00 87 /min [facility] Body temperature 2023-11-18 13:20:00 36.72 Nilda [facility] Respiratory rate 2023-11-18 13:20:00 16 /min [facility] Body height 2023-11-18 13:20:00 157.5 cm [facility] Body weight 2023-11-18 13:20:00 61.689 kg [facility] BMI 2023-11-18 13:20:00 24.87 kg/m2 [facility] Oxygen saturation in Arterial blood by Pulse oximetry 2023-11-18 13:20:00 99 /min [facility] Systolic blood pressure 2023-08-26 14:20:00 127 mm[Hg] [facility] Diastolic blood pressure 2023-08-26 14:20:00 85 mm[Hg] [facility] Heart rate 2023-08-26 14:20:00 93 /min [facility] Body temperature 2023-08-26 14:20:00 36.89 Nilda [facility] Respiratory rate 2023-08-26 14:20:00 16 /min [facility] Body height 2023-08-26 14:20:00 157.5 cm [facility] Body weight 2023-08-26 14:20:00 62.37 kg [facility] BMI 2023-08-26 14:20:00 25.15 kg/m2 [facility] Body mass index (BMI) [Percentile] Per age and sex 2023-08-26 14:20:00 80.93 % [facility] Oxygen saturation in Arterial blood by Pulse oximetry 2023-08-26 14:20:00 99 /min [facility] Systolic blood pressure 2023-06-03 13:56:00 124 mm[Hg] [facility] Diastolic blood pressure 2023-06-03 13:56:00 82 mm[Hg] [facility] Heart rate 2023-06-03 13:56:00 82 /min [facility] Body temperature 2023-06-03 13:56:00 36.89 Nilda [facility] Respiratory rate 2023-06-03 13:56:00 16 /min [facility] Body height 2023-06-03 13:56:00 157.5 cm [facility] Body weight 2023-06-03 13:56:00 59.557 kg [facility] BMI 2023-06-03 13:56:00 24.02 kg/m2 [facility] Body mass index (BMI) [Percentile] Per age and sex 2023-06-03 13:56:00 74.69 % [facility] Oxygen saturation in Arterial blood by Pulse oximetry 2023-06-03 13:56:00 98 /min [facility] Systolic blood pressure 2023-03-07 19:40:00 127 mm[Hg] [facility] Diastolic blood pressure 2023-03-07 19:40:00 81 mm[Hg] [facility] Heart rate 2023-03-07 19:40:00 116 /min [facility] Body temperature 2023-03-07 19:40:00 36.56 Nilda [facility] Respiratory rate 2023-03-07 19:40:00 16 /min [facility] Body height 2023-03-07 19:40:00 157.5 cm [facility] Body weight 2023-03-07 19:40:00 58.559 kg [facility] BMI 2023-03-07 19:40:00 23.61 kg/m2 [facility] Body mass index (BMI) [Percentile] Per age and sex 2023-03-07 19:40:00 72.29 % [facility] Oxygen saturation in Arterial blood by Pulse oximetry 2023-03-07 19:40:00 97 /min [facility] Systolic blood pressure 2022-12-13 13:40:00 120 mm[Hg] [facility] Diastolic blood pressure 2022-12-13 13:40:00 76 mm[Hg] [facility] Heart rate 2022-12-13 13:40:00 80 /min [facility] Respiratory rate 2022-12-13 13:40:00 16 /min [facility] Body height 2022-12-13 13:40:00 157.5 cm [facility] Body weight 2022-12-13 13:40:00 56.382 kg [facility] BMI 2022-12-13 13:40:00 22.73 kg/m2 [facility] Body mass index (BMI) [Percentile] Per age and sex 2022-12-13 13:40:00 65.42 % [facility] Oxygen saturation in Arterial blood by Pulse oximetry 2022-12-13 13:40:00 98 /min [facility] Systolic blood pressure 2022-12-08 18:57:00 112 mm[Hg] [facility] Diastolic blood pressure 2022-12-08 18:57:00 72 mm[Hg] [facility] Heart rate 2022-12-08 18:57:00 95 /min [facility] Respiratory rate 2022-12-08 18:57:00 18 /min [facility] Body height 2022-12-08 18:57:00 157.5 cm [facility] Body weight 2022-12-08 18:57:00 57.153 kg [facility] BMI 2022-12-08 18:57:00 23.05 kg/m2 [facility] Body mass index (BMI) [Percentile] Per age and sex 2022-12-08 18:57:00 68.38 % [facility] Procedures Procedure Date / Time Performed Performing Clinicia n Source POCT TEST 2022-12-13 00:00:00 Cale Coughlin [facility] ASSIGNMENT OF BENEFITS 2022-12-08 18:31:03 Docto r Unassigned, Norlina [facility] Encounters Start Date/Time End Date/Time Encounter Type Admission Type Attending Clinicians Care Facility Care Department Encounter ID Source 2024-05-16 09:00:00 2024-05-16 09:00:00 Nurse Visit Visit, Oleg Nurse Karey Gardner Visit, Oleg Nurse [facility] RF TEST ENGINEER [facility] CHILD [facility] 1.2.840.114 350.1.13.10 4.2.7.2.686 [id number] [facility] 2024-05-16 00:00:00 2024-05-16 08:52:28 Letter (Out) Ron Orona [facility] RF TEST [facility] 1..840.114 350.1.13.10 4.2.7.2.686 [id number] [facility] 2024-05-16 00:00:00 2024-05-16 08:49:33 Letter (Out) Ron Orona [facility] RF TEST ENG[facility]ER [facility] 1..840.114 350.1.13.10 4.2.7.2.686 [id number] [facility] 2024-05-16 09:00:00 2024-05-16 08:47:20 Outpatient R KAREY GARDNER [facility] [id number] [facility] 2024-03-30 00:00:00 2024-03-30 11:28:44 Telephone Ron Orona [facility] RF TEST ENGINEER [facility] 1..840.114 350.1.13.10 4.2.7.2.686 [id number] [facility] 2024-02-22 09:30:00 2024-02-22 10:46:27 Outpatient R RON ORONA [facility] [id number] [facility] 2024-02-22 09:30:00 2024-02-22 10:46:27 Office Visit Ron Orona [facility] RF TEST ENGINEER [facility] 1.2.840.114 350.1.13.10 4.2.7.2.686 [id number] [facility] 2024-02-16 09:30:00 2024-02-16 09:30:00 Outpatient R ABIRON [facility] [id number] [facility] 2023-11-18 08:30:00 2023-11-18 08:30:00 Nurse Visit Nurse, [facility] 1.2840.114 350.1.13.10 4.2.7.2.686 [id number] 134 [id number] [facility] 2023-11-18 08:30:00 2023-11-18 08:20:27 Outpatient R CL [facility] [id number] [facility] 2023-11-18 00:00:00 2023-11-18 00:00:00 Letter (Out) Kitty Donaldson [facility] 1.840.114 350.1.13.10 4.2.7.2.686 [id number] [facility] 2023-08-26 08:30:00 2023-08-26 08:30:00 [facility] 1.840.114 350.1.13.10 4.2.7.2.686 [id number] [facility] 2023-08-26 08:30:00 2023-08-26 08:21:56 Outpatient R CL VINAY [facility] [id number] [facility] 2023-08-26 00:00:00 2023-08-26 00:00:00 Letter (Out) Cl [facility] 1.840.114 350.1.13.10 4.2.7.2.686 [id number] [facility] 2023-06-08 09:30:00 2023-06-08 09:30:00 Outpatient R [facility] [id number] [facility] 2023-06-08 09:30:00 2023-06-08 09:30:00 Outpatient R [facility] [id number] [facility] 2023-06-03 10:45:00 2023-06-03 10:45:00 Nurse Visit Nurse, [facility] Garcia-Brenda s, [facility] 1.2.840.114 350.1.13.10 4.2.7.2.686 [id number] [facility] 2023-06-03 10:45:00 2023-06-03 08:56:37 Outpatient R ZAC Negrete, DANIELTHAD [facility] [id number] [facility] 2023-06-03 00:00:00 2023-06-03 00:00:00 Letter (Out) DeeBrenda s, Daniel [facility] 1.2.840.114 350.1.13.10 4.2.7.2.686 [id number] [facility] 2023-06-02 00:00:00 2023-06-02 00:00:00 Telephone Zac negrete Daniel [facility] 1.2.840.114 350.1.13.10 4.2.7.2.686 [id number] [facility] 2023-05-30 15:45:00 2023-05-30 15:45:00 Outpatient R [facility] [id number] [facility] 2023-05-26 00:00:00 2023-05-26 00:00:00 Telephone Vinay Smallwood [facility] 1.2.840.114 350.1.13.10 4.2.7.2.686 [id number] [facility] 2023-03-07 16:00:00 2023-03-07 16:00:00 [facility] 1.2.840.114 350.1.13.10 4.2.7.2.686 [id number] [facility] 2023-03-07 16:00:00 2023-03-07 14:38:42 Outpatient R RUPERT COUGHLIN CHERYAL [facility] [id number] [facility] 2022-12-13 09:00:00 2022-12-13 09:00:00 [facility] 1.2.840.114 350.1.13.10 4.2.7.2.686 [id number] [facility] 2022-12-13 09:00:00 2022-12-13 08:51:53 Outpatient R RUPERT COUGHLIN CHERYAL [facility] [id number] [facility] 2022-12-13 08:00:00 2022-12-13 08:00:00 Outpatient R [facility] [id number] [facility] 2022-12-13 00:00:00 2022-12-13 00:00:00 Letter (Out) [facility] 1.2.840.114 350.1.13.10 4.2.7.2.686 [id number] [facility] 2022-12-09 00:00:00 2022-12-09 00:00:00 Letter (Out) Katemersonshellyashley [facility] 1.2.840.114 350.1.13.10 4.2.7.2.686 [id number] [facility] 2022-12-09 00:00:00 2022-12-09 00:00:00 [facility] 1.2.840.114 350.1.13.10 4.2.7.2.686 [id number] [facility] 2022-12-09 00:00:00 2022-12-09 00:00:00 Letter (Out) Caprice [facility] 1.2.840.114 350.1.13.10 4.2.7.2.686 [id number] [facility] 2022-12-08 14:00:00 2022-12-08 14:15:07 Outpatient R KATEMERSONSHELLYJOYCE MEDEROSCADY STEPHENSLAMBERTO [facility] [id number] [facility] 2022-12-08 14:00:00 2022-12-08 14:15:07 [facility] 1.2.840.114 350.1.13.10 4.2.7.2.686 [id number] [facility] 2022-12-08 00:00:00 2022-12-08 00:00:00 Orders Only Doctor Unassigned, Norlina [facility] 1.2.840.114 350.1.13.10 4.2.7.2.686 [id number] [facility] 2020-12-24 08:30:00 2020-12-24 08:30:00 Outpatient SG RENEE [facility] [id number] [facility] 2020-12-03 11:30:00 2020-12-03 11:30:00 Outpatient SG RENEE [facility] [id number] [facility] 2020-12-03 09:10:00 2020-12-03 09:10:00 Outpatient [facility] [id number] [facility] Results Test Description Test Time Test Comments Results Result Co mments Source [facility] Notes Date/Time Note Provider Source 2024-03-30 11:28:23 Called MOP, advised no recall at this time. MOP verbalized understanding. Kinsey Felipe RN 03/30/24 11:28 AM Kinsey Felipe RN [facility] 2024-03-30 09:13:37 Nael Moon is a 18 year old female Mother of pt Arcelia is calling requesting to speak with a nurse. She is asking if there has been a recall on depo provera injections. Please contact her at [phone]. Carol Leon [facility]
[2024-06-06] MEDS ORDERED: ONDANSETRON 4 MG/2 ML VIAL ONE (10:49)
[2024-06-06] MEDS ORDERED: NA CHLORIDE 0.9% 1,000 ML ONE (10:52)
[2024-06-06 11:23] LABS: Absolute Eosinophils 0.1 K/uL (0-0.5); Absolute Lymphocytes (CBC) 1.6 K/uL (0.7-4.9); Absolute Monocytes 0.3 K/uL (0.1-1.3); Absolute Neutrophil 2.2 K/uL (1.8-8.0); Basophils % 0.5 % (0-1.3); Eosinophils % 3.1 % (0-4.4); Hematocrit 39.8 % (36.0-45.0); Hemoglobin 13.1 g/dL (12.0-15.0); Lymphocytes % 37.6 % (15.3-44.8); MCH 29.9 pg (27.0-35.0); MCHC 32.9 g/dL (32.0-36.0); MCV 91.1 fL (80-100); MPV 7.2 fL (7.6-11.3); Monocytes % 6.5 % (3.3-12.3); Neutrophils % 52.3 % (41.7-73.7); Nucleated Red Blood Cells % 0.1 % (0-0); Platelets 256 thou/uL (152-406); RBC Red Blood Cell Count 4.36 M/uL (3.86-4.86)
[2024-06-06 11:42] LABS: Albumin 3.5 g/dL (3.4-5.0); Albumin/Globulin Ratio 0.9 (1.1-1.8); Anion Gap 7.5 mEq/L (5.0-15.0); Globulin 3.8 g/dL (2.3-3.5); Potassium 3.5 mEq/L (3.5-5.1); Protein, Total 7.3 g/dL (6.4-8.2)
--- NOTE | 2024-06-06 15:29 | ER ---
Nurse's Notes [facility] Name: Elizabeth Devlin Age: 18 yrs Sex: Female : 2005 Arrival Date: 06/06/2024 Time: 10:24 Bed 13 Private MD: Diagnosis: Nausea with vomiting, unspecified;Diarrhea, unspecified Presentation: 06/06 10:35 Chief complaint: Patient states: N/V/D since Tuesday with low grade fever. Coronavirus ll1 screen: Client denies travel out of the [place] in the last 14 days. diarrhea, fatigue, fever, nausea, vomiting. Client presents with at least one sign or symptom that may indicate coronavirus-19. Standard/surgical mask placed on the client. Ebola Screen: Patient denies travel to an Ebola-affected area in the 21 days before illness onset. Initial Sepsis Screen: Does the patient meet any 2 criteria? No. Patient's initial sepsis screen is negative. Does the patient have a suspected source of infection? No. Patient's initial sepsis screen is negative. Risk Assessment: Do you want to hurt yourself or someone else? Patient reports no desire to harm self or others. Onset of symptoms was June 02, 2024. 10:35 Method Of Arrival: Ambulatory ll1 10:35 Acuity: HARIS 3 ll1 Triage Assessment: 10:37 General: Appears in no apparent distress. Behavior is calm, cooperative, appropriate ll1 for age. Pain: Complains of pain in abdomen Pain currently is 2 out of 10 on a pain scale. Quality of pain is described as crampy. GI: Reports cramping, diarrhea, nausea, vomiting. Historical: - Allergies: 10:29 No Known Allergies; ll1 - PMHx: 10:29 Asthma; Can only take liquid medication; Intellectual speech impediment disability; ll1 - PSHx: 10:29 foot sx; ll1 - Immunization history:: Adult Immunizations up to date. - Infectious Disease History:: Denies. - Social history:: Smoking status: Patient denies any tobacco usage or history of. Screenin:30 [facility] ED Fall Risk Assessment (Adult) History of falling in the last 3 months, rs5 including since admission No falls in past 3 months (0 pts) Confusion or Disorientation No (0 pts) Intoxicated or Sedated No (0 pts) Impaired Gait No (0 pts) Mobility Assist Device Used No (0 pt) Altered Elimination No (0 pt) Score/Fall Risk Level 0 - 2 = Low Risk Oriented to surroundings, Maintained a safe environment. Abuse screen: Denies threats or abuse. Nutritional screening: No deficits noted. Tuberculosis screening: No symptoms or risk factors identified. Assessment: 10:30 General: Appears in no apparent distress. uncomfortable, Behavior is calm, cooperative. rs5 Pain: Denies pain. Neuro: Level of Consciousness is awake, alert, obeys commands, Oriented to person, place, time, situation. Cardiovascular: Patient's skin is warm and dry. Respiratory: Airway is patent Respiratory effort is even, unlabored, Respiratory pattern is regular, symmetrical. GI: Abdomen is round non-distended, Abd is soft and non tender X 4 quads. Reports nausea. : No signs and/or symptoms were reported regarding the genitourinary system. EENT: No signs and/or symptoms were reported regarding the EENT system. Derm: Skin is intact, Skin is pink, warm \T\ dry. Musculoskeletal: Range of motion: intact in all extremities. 11:38 Reassessment: Patient and/or family updated on plan of care and expected duration. Pain rs5 level reassessed. Patient is alert, oriented x 3, equal unlabored respirations, skin warm/dry/pink. 12:23 Reassessment: Patient and/or family updated on plan of care and expected duration. Pain rs5 level reassessed. Patient is alert, oriented x 3, equal unlabored respirations, skin warm/dry/pink. 13:14 General: Attempted to collect urine in a hat via clean catch but patient had some me1 diarrhea that got into the specimen.. Vital Signs: 10:35 BP 132 / 77; Pulse 109; Resp 17; Temp 98.6; Pulse Ox 98% on R/A; Pain 2/10; ll1 11:00 BP 124 / 87; Pulse 112; Resp 14; Pulse Ox 99% ; me1 12:00 BP 111 / 81; Pulse 108; Resp 15; Pulse Ox 100% ; me1 13:00 BP 121 / 87; Pulse 102; Resp 14; Pulse Ox 99% ; me1 14:00 BP 114 / 85; Pulse 98; Resp 15; Pulse Ox 100% ; me1 15:00 BP 108 / 77; Pulse 93; Resp 16; Pulse Ox 100% ; me1 15:43 BP 106 / 75; Pulse 98; Resp 16; Temp 98.4; Pulse Ox 99% ; me1 10:35 Pain Scale: Adult ll1 ED Course: 10:28 Patient arrived in ED. mg5 10:29 Thalia Orantes is Attending Physician. ci 10:29 Arm band placed on Patient placed in an exam room, on a stretcher. ll1 10:30 Patient has correct armband on for positive identification. Bed in low position. Call rs5 light in reach. Side rails up X2. 10:30 No provider procedures requiring assistance completed. rs5 10:37 Triage completed. ll1 10:50 Inserted saline lock: 24 gauge in right antecubital area, using aseptic technique. rs5 Blood collected. Flushed with 10 mL NS. 11:01 Brooks Vanegas, RN is Primary Nurse. rs5 16:05 Provided Education on: discharge instructions . rs5 16:08 IV discontinued, intact, bleeding controlled, No redness/swelling at site. Pressure rs5 dressing applied. Administered Medications: 11:15 Drug: Ondansetron IVP 4 mg IVP once; over 2 minutes Route: IVP; Site: right antecubital;rs5 14:35 Follow up: Response: No adverse reaction; Nausea is decreased me1 11:15 Drug: NS 0.9% IV 1000 ml IV at 1 bolus Per protocol; to be given as a bolus over 60 rs5 minutes Route: IV; Rate: 1 bolus; Site: right antecubital; 14:35 Follow up: Response: No adverse reaction; IV Status: Completed infusion; IV Intake: me1 1000ml Medication: 10:37 VIS not applicable for this client. rs5 Intake: 14:35 IV: 1000ml; Total: 1000ml. me1 Outcome: 15:29 Discharge ordered by . ci 16:08 Discharged to home ambulatory, rs5 16:08 Condition: stable rs5 16:08 Condition: stable 16:08 Discharge instructions given to patient, family, Instructed on discharge instructions, follow up and referral plans. Demonstrated understanding of instructions, follow-up care, 16:09 Patient left the ED. ll1 Signatures: Freida Ramsey RN RN 1 Brooks Vanegas, RN RN rs5 Magaly Armenta RN RN me1 Yolanda Harman mg5 IhealexisunekwuThalia
--- NOTE | 2024-06-06 15:29 | EDPHYS ---
Physician Documentation [facility] Name: Elizabeth Devlin Age: 18 yrs Sex: Female : 2005 Arrival Date: 06/06/2024 Time: 10:24 Bed 13 Private MD: ED Physician Thalia Orantes HPI: 06/06 14:36 This 18 yrs old Black Female presents to ER via Ambulatory with complaints of Fever, ci Vomiting. 14:36 Is a 18-year-old female with PMH asthma, intellectual disability who presents to the ED ci with chief complaint of nausea vomiting and diarrhea that began about 5 days ago. Patient's mother has been trying Pedialyte with no improvement. Diarrhea has improved but patient has been unable to keep any foods down.. Historical: - Allergies: : No Known Allergies; ll1 - PMHx: 10: Asthma; Can only take liquid medication; Intellectual speech impediment disability; ll1 - PSHx: 10: foot sx; ll1 - Immunization history:: Adult Immunizations up to date. - Infectious Disease History:: Denies. - Social history:: Smoking status: Patient denies any tobacco usage or history of. ROS: 20:21 Constitutional: Negative for fever, chills, and weight loss, ci 20:21 Abdomen/GI: Positive for abdominal pain, nausea, vomiting, and diarrhea, 20:30 Constitutional: Positive for poor PO intake, Negative for body aches, ci Exam: 20:20 Constitutional: This is a well developed, well nourished patient who is awake, alert, ci and in no acute distress. Head/Face: Normocephalic, atraumatic. Eyes: Pupils equal round and reactive to light, extra-ocular motions intact. Lids and lashes normal. Conjunctiva and sclera are non-icteric and not injected. Cornea within normal limits. Periorbital areas with no swelling, redness, or edema. Cardiovascular: Regular rate and rhythm with a normal S1 and S2. No gallops, murmurs, or rubs. Normal PMI, no JVD. No pulse deficits. Respiratory: Lungs have equal breath sounds bilaterally, clear to auscultation and percussion. No rales, rhonchi or wheezes noted. No increased work of breathing, no retractions or nasal flaring. Abdomen/GI: Soft, non-tender, with normal bowel sounds. No distension or tympany. No guarding or rebound. No evidence of tenderness throughout. Skin: Warm, dry with normal turgor. Normal color with no rashes, no lesions, and no evidence of cellulitis. MS/ Extremity: Pulses equal, no cyanosis. Neurovascular intact. Full, normal range of motion. Neuro: Awake and alert, GCS 15, oriented to person, place, time, and situation. Cranial nerves II-XII grossly intact. Motor strength 5/5 in all extremities. Sensory grossly intact. Cerebellar exam normal. Normal gait. Vital Signs: 10:35 BP 132 / 77; Pulse 109; Resp 17; Temp 98.6; Pulse Ox 98% on R/A; Pain 2/10; ll1 11:00 BP 124 / 87; Pulse 112; Resp 14; Pulse Ox 99% ; me1 12:00 BP 111 / 81; Pulse 108; Resp 15; Pulse Ox 100% ; me1 13:00 BP 121 / 87; Pulse 102; Resp 14; Pulse Ox 99% ; me1 14:00 BP 114 / 85; Pulse 98; Resp 15; Pulse Ox 100% ; me1 15:00 BP 108 / 77; Pulse 93; Resp 16; Pulse Ox 100% ; me1 15:43 BP 106 / 75; Pulse 98; Resp 16; Temp 98.4; Pulse Ox 99% ; me1 10:35 Pain Scale: Adult ll1 MDM: 10:29 Medical Screening Exam initiated ci 15:22 Differential diagnosis: viral Infection, UTI, gastroenteritis, Colitis. Data reviewed: ci vital signs, nurses notes. Historians other than the Patient: Parent: HPI obtained from mother, patient has a history of intellectual disability, poor historian. Care significantly affected by the following chronic conditions: Asthma. ED course: Patient presents for evaluation of nausea/vomiting/diarrhea. She has no leukocytosis, no ANAIS. Patient was given antiemetic with significant improvement, hydrated with IV fluids. Patient p.o. challenge, tolerated well. No evidence of acute abdomen. Discussed CT with mother, shared decision making utilized, will defer at this time. Patient unable to provide urine sample in the ED. Denies any urinary symptoms. At this time will discharge patient with p.o. Zofran and close outpatient follow-up with PCP.. 06/06 10:44 Order name: CBC with Diff; Complete Time: 12:07 ci 06/06 12:21 Interpretation: Within normal limits: No leukocytosis or anemia. ci 06/06 10:44 Order name: CMP; Complete Time: 12:07 ci 06/06 12:22 Interpretation: No ANAIS, no electrolyte abnormality. ci 06/06 10:44 Order name: Lipase; Complete Time: 12:07 ci 06/06 10:44 Order name: IV Saline Lock; Complete Time: 11:23 ci 06/06 10:44 Order name: Labs collected and sent; Complete Time: 11:23 ci Administered Medications: 11:15 Drug: Ondansetron IVP 4 mg IVP once; over 2 minutes Route: IVP; Site: right antecubital;rs5 14:35 Follow up: Response: No adverse reaction; Nausea is decreased me1 11:15 Drug: NS 0.9% IV 1000 ml IV at 1 bolus Per protocol; to be given as a bolus over 60 rs5 minutes Route: IV; Rate: 1 bolus; Site: right antecubital; 14:35 Follow up: Response: No adverse reaction; IV Status: Completed infusion; IV Intake: me1 1000ml Disposition Summary: 06/06/24 15:29 Discharge Ordered Notes: Location: Home ci Condition: Stable ci Diagnosis - Nausea with vomiting, unspecified ci - Diarrhea, unspecified ci Followup: ci - With: Private Physician - When: 2 - 3 days - Reason: Recheck today's complaints, Re-evaluation by your physician Discharge Instructions: - Discharge Summary Sheet ci - Diarrhea, Adult ci - Nausea and Vomiting, Adult, [id number] ci Forms: - School release form ci - Medication Reconciliation Form ci - Antibiotic Education ci - Prescription Opioid Use ci - Patient Portal Instructions ci - Leadership Thank You Letter ci Prescriptions: - Zofran 4 mg Oral tablet - take 1 tablet ORAL route every 12 hours As needed; 15 tablet; Refills: 0, ci Product Selection Permitted Signatures: Dispatcher [employer] Freida Lewis RN RN ll1 rBooks Vanegas RN RN rs5 IheonunekThalia singh ci Magaly Armenta RN me1 Corrections: (The following items were deleted from the chart) 10:45 10:45 CBC+H.LAB.BRZ ordered. EDMS EDMS 10:45 10:45 COMPREHENSIVE METABOLIC PANEL+C.LAB.BRZ ordered. EDMS EDMS 10:45 10:45 LIPASE+C.LAB.BRZ ordered. EDMS EDMS 10:45 10:45 Test, Urine+UC.LAB.BRZ ordered. EDMS EDMS 10:45 10:45 Urinalysis+U.LAB.BRZ ordered. EDMS EDMS 20:31 15:22 ED course: Patient presents for evaluation of nausea/vomiting/diarrhea. She has ci no leukocytosis, no ANAIS. Patient was given antiemetic with significant improvement, hydrated with IV fluids. Patient p.o. challenge, tolerated well. Patient unable to provide urine sample in the ED. Denies any urinary symptoms. At this time will discharge patient with p.o. Zofran and close outpatient follow-up with PCP.. ci
[2024-06-06 16:21] VITALS: BP 106/75; TEMP 98.4; O2SAT 99
== END 2024-06-06 16:09 | disposition home or self-care (01) ==
LOC: ER 10:24
DX: R11.2 Nausea with vomiting, unspecified (principal); R19.7 Diarrhea, unspecified
CPT/HCPCS: 36415; 80053; 83690; 85025; 96361; 96374; 99284; J2405; J7030

== ENCOUNTER 2025-05-17 12:30 | Emergency (ER) | payer OTHER ==
--- OUTSIDE RECORDS SUMMARY | 2025-05-17 12:34 | XMS REPORT | Continuity of Care Document ---
Author Name Unknown Address [address] [facility] [address] [facility] [address] [place] [address] [facility] Address [address] [address] [place] [address] Care Team Providers Care C Engineer Name Role Phone PCP, PATIENT DOES NOT HAVE A Primary Care Physic tyson Unavailable Ron Borjas Attending Clinician [phone] [facility], [facility] Unava ilKarey Rondon Attending Clinician + KAREY GARDNER Attending Clinician Unavail able RON ORONA Attending Clinician Unavailable DANIEL JACQUES Attending Clinician DANIEL Lux Attending Clinician Krissy krishna Nurse, [facility] Attending Clinician Unavailable Vinay Smallwood MD Attending Clinician [phone] VINAY SMALLWOOD Attending Clinician Unavailable Kitty Donaldson MD Attending Clinician [phone] Rupert Coughlin NP Attending Clinician [phone] RUPERT COUGHLIN Attending Clinician Unavailaniceto umanzor Doctor Unassigned, [facility] Attending Clinician SG Smith Attending Clinician Unavail able Payers Payer Name Policy Type Policy Number Effective Date Expirati on Date Source Problems Condition Name Condition Details Condition Category Status Onset Date Resolution Date Last Treatment Date Treating Clinician Comments Source Menorrhagi a with regular cycle Menorrhagi a with regular cycle Disease Active 12-09 00:00: 00 [facility] 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 12-09 00:00: 00 [facility] Family history of blood clots Family history of blood clots Disease Active 12-09 00:00: 00 [facility] Allergies, Adverse Reactions, Alerts Allergy Name Allergy Type Status Severity Reaction(s) Onset Date Inactive Date Treating Clinician Comments Source NO KNOWN ALLERGIE S Drug Class Active [facility] Social History Social Habit Start Date Stop Date Quantity Comments Source [facility] ASSERTION Not [facility] Alcoholic beverage intake 2025-04-22 00:00:00 2025-04-22 00:00:00 Current non-drinker of alcohol (finding) [facility] History of Social function 2025-01-28 00:00:00 2025-01-28 00:00:00 [facility] Alcohol intake 2023-11-21 00:00:00 2023-11-21 00:00:00 Current non-drinker of alcohol (finding) [facility] Exposure to SARS-CoV-2 (event) 2022-11-28 00:00:00 2022-12-08 13:33:00 Not sure [facility] Tobacco use and exposure 2022-12-08 00:00:00 2022-12-08 00:00:00 Smokeless tobacco non-user [facility] Tobacco Comment 2022-12-08 00:00:00 2022-12-08 00:00:00 No smoke exposure [facility] Sex assigned at 2004 00:00:00 2005 00:00:00 [facility] Smoking Status Start Date Stop Date Source Never smoked tobacco [facility] Medications Ordered Medication Name Filled Medication Name Start Date Stop Date Current Medication? Ordering Clinician Indication Dosage Frequency Signature (SIG) Comments Components Source medroxyPROG ESTERone (DEPO-PROVE RA) syringe 150 mg 04-22 13:30: 00 06-16 14:29 :00 Yes [id number] 150mg 150 mg, Intramuscu lar, [id number], 5 doses, First dose on Tue04/22/25 at 0830, Last dose on Tue03/24/26 at 0830, Routine [facility] medroxyPROG ESTERone (DEPO-PROVE RA) syringe 150 mg 02-21 15:45: 00 01-28 12:56 :00 No [id number] 150mg 150 mg, Intramuscu lar, [id number], 5 doses, First dose on Tue02/22/24 at 1045, Last dose on Tue01/23/25 at 1045, Routine [facility] albuterol sulfate (PROAIR HFA INHALE) 02-21 10:02: 58 04-22 00:00 :00 No Inhale. [facility] levalbutero l 0.31 mg/3 mL nebulizer solution 02-21 10:02: 58 04-22 00:00 :00 No 45mg Inhale 45 mg. [facility] medroxyPROG ESTERone (DEPO-PROVE RA) injection 150 mg 11-17 14:15: 00 11-17 13:27 :00 No [id number] 150mg 150 mg, Intramuscu lar, ONCE, 1 dose, On Tue11/18/23 at 0915, Routine [facility] medroxyPROG ESTERone (DEPO-PROVE RA) injection 150 mg 08-26 15:15: 00 08-26 14:22 :00 No [id number] 150mg [facility] fluticasone propionate 110 mcg/actuati on inhaler 1-05 00:00: 00 Yes INHALE 1 PUFF BY MOUTH 2 TIMES PER DAY [facility] medroxyPROG ESTERone (DEPO-PROVE RA) injection 150 mg 2022-08 14:45: 00 06-03 14:06 :00 No [id number] 150mg [facility] medroxyPROG ESTERone (DEPO-PROVE RA) injection 150 mg 03-07 20:30: 00 03-07 19:42 :00 No [id number] 150mg [facility] levalbutero l 0.31 mg/3 mL nebulizer solution 03-07 14:41: 29 Yes 45mg Inhale 45 mg. [facility] medroxyPROG ESTERone (DEPO-PROVE RA) injection 150 mg 12-13 14:45: 00 12-13 13:53 :00 No [id number] 150mg [facility] levalbutero l 0.31 mg/3 mL nebulizer solution 12-13 08:39: 47 Yes 45mg Inhale 45 mg. [facility] montelukast 10 mg tablet 12-08 13:58: 04 Yes 10mg Take 1 tablet by mouth. [facility] loratadine (CLARITIN ORAL) 12-08 13:57: 46 Yes Take by mouth. [facility] beclomethas one dipropionat e (QVAR INHALE) 12-08 13:57: 46 Yes Inhale. [facility] estradiol (ESTRACE) 1 mg tablet 10-30 00:00: 00 03-07 00:00 :00 No 1mg Take 1 tablet by mouth daily. [facility] beclomethas one dipropionat e (QVAR INHALE) 09-14 14:40: 51 Yes Inhale. [facility] loratadine (CLARITIN ORAL) 09-14 14:39: 45 Yes Take by mouth. [facility] montelukast 10 mg tablet 09-14 14:39: 45 Yes 10mg Take 10 mg by mouth. [facility] incontinenc e alarms (MISC. DEVICES MISC) 2014-0 05-05 00:00: 00 04-22 00:00 :00 No 1{devic e} 1 Device. [facility] Immunizations Ordered Immunization Name Filled Immunization Name Date Status Comments Source Flu Injectable MDCK Pres-Free (FLUCELVAX) 2025-04-22 00:00:00 Completed [facility] SARS-COV-2 COVID-19 PFIZER VACCINE 2020-12-24 00:00:00 Completed [facility] SARS-COV-2 COVID-19 PFIZER VACCINE 2020-12-03 00:00:00 Completed [facility] Vital Signs Vital Name Observation Time Observation Value Comments S ource Systolic blood pressure 2025-04-22 13:04:00 113 mm[Hg] [facility] Diastolic blood pressure 2025-04-22 13:04:00 74 mm[Hg] [facility] Heart rate 2025-04-22 13:04:00 89 /min [facility] Body temperature 2025-04-22 13:04:00 36.22 Nilda [facility] Respiratory rate 2025-04-22 13:04:00 17 /min [facility] Body height 2025-04-22 13:04:00 157.5 cm [facility] Body weight 2025-04-22 13:04:00 53.723 kg [facility] BMI 2025-04-22 13:04:00 21.66 kg/m2 [facility] Systolic blood pressure 2025-01-28 12:54:00 111 mm[Hg] [facility] Diastolic blood pressure 2025-01-28 12:54:00 76 mm[Hg] [facility] Heart rate 2025-01-28 12:54:00 83 /min [facility] Body temperature 2025-01-28 12:54:00 36.67 Nilda [facility] Respiratory rate 2025-01-28 12:54:00 18 /min [facility] Body height 2025-01-28 12:54:00 157.5 cm [facility] Body weight 2025-01-28 12:54:00 53.524 kg Univ [facility] BMI 2025-01-28 12:54:00 21.58 kg/m2 [facility] Systolic blood pressure 2024-11-05 13:46:00 125 mm[Hg] [facility] Diastolic blood pressure 2024-11-05 13:46:00 81 mm[Hg] [facility] Heart rate 2024-11-05 13:46:00 93 /min Un[facility] Body temperature 2024-11-05 13:46:00 37.06 Nilda [facility] Respiratory rate 2024-11-05 13:46:00 16 /min [facility] Body height 2024-11-05 13:46:00 157.5 cm [facility] Body weight 2024-11-05 13:46:00 56.246 kg [facility] BMI 2024-11-05 13:46:00 22.68 kg/m2 [facility] Systolic blood pressure 2024-08-09 14:12:00 114 mm[Hg] [facility] Diastolic blood pressure 2024-08-09 14:12:00 77 mm[Hg] [facility] Heart rate 2024-08-09 14:12:00 86 /min [facility] Body temperature 2024-08-09 14:12:00 36.72 Nilda [facility] Respiratory rate 2024-08-09 14:12:00 17 /min [facility] Body height 2024-08-09 14:12:00 157.5 cm [facility] Body weight 2024-08-09 14:12:00 56.473 kg [facility] BMI 2024-08-09 14:12:00 22.77 kg/m2 [facility] Systolic blood pressure 2024-05-16 13:35:00 120 mm[Hg] [facility] Diastolic blood pressure 2024-05-16 13:35:00 73 mm[Hg] [facility] Heart rate 2024-05-16 13:35:00 81 /min [facility] Body temperature 2024-05-16 13:35:00 36.5 Nilda [facility] Respiratory rate 2024-05-16 13:35:00 19 /min [facility] Body height 2024-05-16 13:35:00 157.5 cm [facility] Body weight 2024-05-16 13:35:00 58.514 kg [facility] BMI 2024-05-16 13:35:00 23.59 kg/m2 [facility] Systolic blood pressure 2024-02-22 14:55:00 115 mm[Hg] [facility] Diastolic blood pressure 2024-02-22 14:55:00 77 mm[Hg] [facility] Heart rate 2024-02-22 14:55:00 85 /min [facility] Body temperature 2024-02-22 14:55:00 35.89 Nilda [facility] Respiratory rate 2024-02-22 14:55:00 18 /min [facility] Body height 2024-02-22 14:55:00 157.5 cm [facility] Body weight 2024-02-22 14:55:00 59.33 kg [facility] BMI 2024-02-22 14:55:00 23.92 kg/m2 [facility] Systolic blood pressure 2023-11-18 13:20:00 112 mm[Hg] [facility] Diastolic blood pressure 2023-11-18 13:20:00 75 mm[Hg] [facility] Heart rate 2023-11-18 13:20:00 87 /min [facility] Body temperature 2023-11-18 13:20:00 36.72 Nilda [facility] Respiratory rate 2023-11-18 13:20:00 16 /min [facility] Body height 2023-11-18 13:20:00 157.5 cm [facility] Body weight 2023-11-18 13:20:00 61.689 kg [facility] BMI 2023-11-18 13:20:00 24.87 kg/m2 [facility] Oxygen saturation in Arterial blood by Pulse oximetry 2023-11-18 13:20:00 99 /min [facility] Systolic blood pressure 2023-08-26 14:20:00 127 mm[Hg] [facility] Diastolic blood pressure 2023-08-26 14:20:00 85 mm[Hg] [facility] Heart rate 2023-08-26 14:20:00 93 /min [facility] Body temperature 2023-08-26 14:20:00 36.89 Nilda [facility] Respiratory rate 2023-08-26 14:20:00 16 /min [facility] Body height 2023-08-26 14:20:00 157.5 cm [facility] Body weight 2023-08-26 14:20:00 62.37 kg [facility] BMI 2023-08-26 14:20:00 25.15 kg/m2 [facility] Body mass index (BMI) [Percentile] Per age and sex 2023-08-26 14:20:00 80.93 % [facility] Oxygen saturation in Arterial blood by Pulse oximetry 2023-08-26 14:20:00 99 /min [facility] Systolic blood pressure 2023-06-03 13:56:00 124 mm[Hg] [facility] Diastolic blood pressure 2023-06-03 13:56:00 82 mm[Hg] [facility] Heart rate 2023-06-03 13:56:00 82 /min [facility] Body temperature 2023-06-03 13:56:00 36.89 Nilda [facility] Respiratory rate 2023-06-03 13:56:00 16 /min [facility] Body height 2023-06-03 13:56:00 157.5 cm [facility] Body weight 2023-06-03 13:56:00 59.557 kg [facility] BMI 2023-06-03 13:56:00 24.02 kg/m2 [facility] Body mass index (BMI) [Percentile] Per age and sex 2023-06-03 13:56:00 74.69 % [facility] Oxygen saturation in Arterial blood by Pulse oximetry 2023-06-03 13:56:00 98 /min [facility] Systolic blood pressure 2023-03-07 19:40:00 127 mm[Hg] [facility] Diastolic blood pressure 2023-03-07 19:40:00 81 mm[Hg] [facility] Heart rate 2023-03-07 19:40:00 116 /min [facility] Body temperature 2023-03-07 19:40:00 36.56 Nilda [facility] Respiratory rate 2023-03-07 19:40:00 16 /min [facility] Body height 2023-03-07 19:40:00 157.5 cm [facility] Body weight 2023-03-07 19:40:00 58.559 kg [facility] BMI 2023-03-07 19:40:00 23.61 kg/m2 [facility] Body mass index (BMI) [Percentile] Per age and sex 2023-03-07 19:40:00 72.29 % [facility] Oxygen saturation in Arterial blood by Pulse oximetry 2023-03-07 19:40:00 97 /min [facility] Systolic blood pressure 2022-12-13 13:40:00 120 mm[Hg] [facility] Diastolic blood pressure 2022-12-13 13:40:00 76 mm[Hg] [facility] Heart rate 2022-12-13 13:40:00 80 /min [facility] Respiratory rate 2022-12-13 13:40:00 16 /min [facility] Body height 2022-12-13 13:40:00 157.5 cm [facility] Body weight 2022-12-13 13:40:00 56.382 kg [facility] BMI 2022-12-13 13:40:00 22.73 kg/m2 [facility] Body mass index (BMI) [Percentile] Per age and sex 2022-12-13 13:40:00 65.42 % [facility] Oxygen saturation in Arterial blood by Pulse oximetry 2022-12-13 13:40:00 98 /min [facility] Systolic blood pressure 2022-12-08 18:57:00 112 mm[Hg] [facility] Diastolic blood pressure 2022-12-08 18:57:00 72 mm[Hg] [facility] Heart rate 2022-12-08 18:57:00 95 /min [facility] Respiratory rate 2022-12-08 18:57:00 18 /min [facility] Body height 2022-12-08 18:57:00 157.5 cm [facility] Body weight 2022-12-08 18:57:00 57.153 kg [facility] BMI 2022-12-08 18:57:00 23.05 kg/m2 [facility] Body mass index (BMI) [Percentile] Per age and sex 2022-12-08 18:57:00 68.38 % [facility] Procedures Procedure Date / Time Performed Performing Clinicia n Source FLU VACC ([id number]), 6 MO-64 YRS, .5ML, IM, TIV (FLUCELVAX) 2025-04-22 13:36:24 Ron Orona [facility] POCT TEST 2022-12-13 00:00:00 Cale Coughlin [facility] ASSIGNMENT OF BENEFITS 2022-12-08 18:31:03 Docto r Unassigned, [place] [facility] Encounters Start Date/Time End Date/Time Encounter Type Admission Type Attending Clinicians Care Facility Care Department Encounter ID Source 2025-04-22 00:00:00 2025-04-22 08:45:50 Letter (Out) Ron Orona [facility] CHILD [facility] 1..840.114 350.1.13.10 4.2.7.2.686 [id number] 107 [id number] [facility] 2025-04-22 08:00:00 2025-04-22 08:42:53 Office Visit R Ron Orona [facility] ..840.114 350.1.13.10 4.2.7.2.686 [id number] 107 [id number] [facility] 2025-01-28 08:00:00 2025-01-28 08:02:07 Nurse Visit R Visit, Matias-[facility]chp Nurse Karey Gardner C Visit, Ang-Rmchp Nurse [facility] 1.2.840.114 350.1.13.10 4.2.7.2.686 [id number] [facility] 2024-11-05 09:00:00 2024-11-05 09:00:00 Nurse Visit Visit, Celenap Nurse Karey Gardner C Visit, Matias-Rmchp Nurse [facility] 1..840.114 350.1.13.10 4.2.7.2.686 [id number] [facility] 2024-11-05 00:00:00 2024-11-05 08:57:42 Letter (Out) Karey Gardner [facility] SPECIAL[facility] 1..840.114 350.1.13.10 4.2.7.2.686 [id number] [facility] 2024-11-05 09:00:00 2024-11-05 08:56:22 Outpatient R KAREY GARDNER [facility] [id number] [facility] 2024-08-09 00:00:00 2024-08-09 15:32:27 Telephone Ron Orona [facility] 1..840.114 350.1.13.10 4.2.7.2.686 [id number] [facility] 2024-08-09 09:00:00 2024-08-09 09:15:00 Nurse Visit Visit, Kassychcici Nurse Karey Gardner C Visit, Matias-Rmchp Nurse [facility] 1.2.840.114 350.1.13.10 4.2.7.2.686 [id number] [facility] 2024-08-09 09:00:00 2024-08-09 09:00:00 Outpatient KAREY TINSLEY [facility] [id number] [facility] 2024-05-16 09:00:00 2024-05-16 09:00:00 Nurse Visit Visit, Ang-Rmchp Nurse Karey Gardner C Visit, Ang-Rmchp Nurse [facility] 1.2.840.114 350.1.13.10 4.2.7.2.686 [id number] [facility] 2024-05-16 00:00:00 2024-05-16 08:52:28 Letter (Out) Ron Orona [facility] 1.2.840.114 350.1.13.10 4.2.7.2.686 [id number] [facility] 2024-05-16 00:00:00 2024-05-16 08:49:33 Letter (Out) Ron Orona [facility] 1.2.840.114 350.1.13.10 4.2.7.2.686 [id number] [facility] 2024-05-16 09:00:00 2024-05-16 08:47:20 Outpatient R KAREY GARDNER [facility] [id number] [facility] 2024-03-30 00:00:00 2024-03-30 11:28:44 Telephone Ron Orona [facility] 1.2.840.114 350.1.13.10 4.2.7.2.686 [id number] [facility] 2024-02-22 09:30:00 2024-02-22 10:46:27 Outpatient R RON ORONA [facility] [id number] [facility] 2024-02-22 09:30:00 2024-02-22 10:46:27 Office Visit Ron Orona [facility] 1.0.114 350.1.13.10 4.2.7.2.686 [id number] 107 [id number] [facility] 2024-02-16 09:30:00 2024-02-16 09:30:00 Outpatient R RON ORONA [facility] [id number] [facility] 2023-11-18 08:30:00 2023-11-18 08:30:00 Nurse Visit Nurse, Peg [facility] 1.0.114 350.1.13.10 4.2.7.2.686 [id number] 134 [id number] [facility] 2023-11-18 08:30:00 2023-11-18 08:20:27 Outpatient VINAY CEJA [facility] [id number] [facility] 2023-11-18 00:00:00 2023-11-18 00:00:00 Letter (Out) Kitty Donaldson [facility] 1.0.114 350.1.13.10 4.2.7.2.686 [id number] [facility] 2023-08-26 08:30:00 2023-08-26 08:30:00 Nurse Visit NursePeg [facility] Elias Smallwood [facility] 1..114 350.1.13.10 4.2.7.2.686 [id number] 134 [id number] [facility] 2023-08-26 08:30:00 2023-08-26 08:21:56 Outpatient R VINAY SMALLWOOD [facility] [id number] [facility] 2023-08-26 00:00:00 2023-08-26 00:00:00 Letter (Out) Vinay Smallwood Igor [facility] 1.20.114 350.1.13.10 4.2.7.2.686 [id number] 134 [id number] [facility] 2023-06-08 09:30:00 2023-06-08 09:30:00 Outpatient R [facility] [id number] [facility] 2023-06-08 09:30:00 2023-06-08 09:30:00 Outpatient R [facility] [id number] [facility] 2023-06-03 10:45:00 2023-06-03 10:45:00 Nurse Visit Nurse, Peg [facility] Chhaya negrete [facility] 1.0.114 350.1.13.10 4.2.7.2.686 [id number] [facility] 2023-06-03 10:45:00 2023-06-03 08:56:37 Outpatient R DANIEL BORGES MARISOL [facility] [id number] [facility] 2023-06-03 00:00:00 2023-06-03 00:00:00 Letter (Out) Chhaya negrete [facility] 1.20.114 350.1.13.10 4.2.7.2.686 [id number] [facility] 2023-06-02 00:00:00 2023-06-02 00:00:00 Telephone Chhaya negrete [facility] 1.2840.114 350.1.13.10 4.2.7.2.686 [id number] [facility] 2023-05-30 15:45:00 2023-05-30 15:45:00 Outpatient R [facility] [id number] [facility] 2023-05-26 00:00:00 2023-05-26 00:00:00 Telephone Vinay Smallwood Igor [facility] 1.0.114 350.1.13.10 4.2.7.2.686 [id number] 134 [id number] [facility] 2023-03-07 16:00:00 2023-03-07 16:00:00 Nurse Visit Nurse, [facility] 1.0.114 350.1.13.10 4.2.7.2.686 [id number] 134 [id number] [facility] 2023-03-07 16:00:00 2023-03-07 14:38:42 Outpatient R RUPERT COUGHLIN [facility] [id number] [facility] 2022-12-13 09:00:00 2022-12-13 09:00:00 [facility] 1..114 350.1.13.10 4.2.7.2.686 [id number] 134 [id number] [facility] 2022-12-13 09:00:00 2022-12-13 08:51:53 Outpatient R RUPERT COUGHLIN [facility] [id number] [facility] 2022-12-13 08:00:00 2022-12-13 08:00:00 Outpatient R [facility] [id number] [facility] 2022-12-13 00:00:00 2022-12-13 00:00:00 Letter (Out) Caprice [facility] 1.840.114 350.1.13.10 4.2.7.2.686 [id number] [facility] 2022-12-09 00:00:00 2022-12-09 00:00:00 [facility] 1.2.840.114 350.1.13.10 4.2.7.2.686 [id number] 134 [id number] [facility] 2022-12-09 00:00:00 2022-12-09 00:00:00 [facility] 1.2.840.114 350.1.13.10 4.2.7.2.686 [id number] [facility] 2022-12-09 00:00:00 2022-12-09 00:00:00 Letter (Out) Caprice [facility] 1.2.840.114 350.1.13.10 4.2.7.2.686 [id number] [facility] 2022-12-08 14:00:00 2022-12-08 14:15:07 Out[facility] [id number] [facility] 2022-12-08 14:00:00 2022-12-08 14:15:07 Office Visit Rupert Coughlin [facility] 1.2.840.114 350.1.13.10 4.2.7.2.686 [id number] [facility] 2022-12-08 00:00:00 2022-12-08 00:00:00 Orders Only Doctor Unassigned, [place] [facility] 1.2.840.114 350.1.13.10 4.2.7.2.686 [id number] [facility] 2020-12-24 08:30:00 2020-12-24 08:30:00 Outpatient [facility] [id number] [facility] 2020-12-03 11:30:00 2020-12-03 11:30:00 Outpatient [facility] [id number] [facility] 2020-12-03 09:10:00 2020-12-03 09:10:00 Outpatient [facility] [id number] [facility] Results Test Description Test Time Test Comments Results Result Co mments Source [facility] Notes Date/Time Note Provider Source 2024-08-09 15:26:23 Spoke with pt's mother, Arcelia Moon, regarding depo use and the development of brain tumors. Explained to mother that the chances of developing menigiomas are small and are often linked to family history of these type of tumors. Explained that prolonged use of depo can be linked to decreased bone density and that is why some providers suggest a "depo holiday" after 2 years. Suggested to mother that if she is concerned about the develop of menigiomas that she may switch control method when the pt is due for another depo. All questions were answered, mother voiced understanding and may consider another method at that time. KONRAD Lindquist 08/09/2024 3:31 PM [facility] 2024-08-09 12:53:44 Nael Moon is a 18 year old female Mother requesting to speak with nurse/ provider regarding Depo, states she has been reading about depo being on recall and checked on Google about the lawsuits due brain tumors. Please call [phone] IE Sanchez [facility] 2024-03-30 11:28:23 Called MOP, advised no recall at this time. MOP verbalized understanding. Kinsey Felipe RN 03/30/24 11:28 AM Kinsey Felipe RN [facility] 2024-03-30 09:13:37 Nael Moon is a 18 year old female Mother of pt Arcelia is calling requesting to speak with a nurse. She is asking if there has been a recall on depo provera injections. Please contact her at [phone]. Carol Leon [facility]
[2025-05-17] MEDS ORDERED: ONDANSETRON 4 MG/2 ML VIAL ONE (12:54)
[2025-05-17] MEDS ORDERED: NA CHLORIDE 0.9% 1,000 ML ONE (12:54)
[2025-05-17 13:09] LABS: Absolute Lymphocytes (CBC) 1.4 K/uL (0.7-4.9); Hematocrit 41.5 % (36.0-45.0); Hemoglobin 13.6 g/dL (12.0-15.0); MCH 29.7 pg (27.0-35.0); MCHC 32.7 g/dL (32.0-36.0); MCV 90.9 fL (80-100); MPV 7.2 fL (7.6-11.3); Nucleated RBC Absolute Count 0.0 (0-0); Nucleated Red Blood Cells % 0.0 % (0-0); RBC Red Blood Cell Count 4.56 M/uL (3.86-4.86); White Blood Count 5.50 thou/uL (4.3-10.9)
[2025-05-17 13:26] LABS: Influenza A Ag Negative; Influenza B Ag Negative; SARS-CoV-2 Antigen Rapid Res Negative (Negative)
[2025-05-17 13:31] LABS: ALT/SGPT 16 U/L (13-56); Albumin 3.6 g/dL (3.4-5.0); Albumin/Globulin Ratio 1.0 (1.1-1.8); Alkaline Phosphatase 64 U/L (45-117); Anion Gap 9.7 mEq/L (5.0-15.0); BUN Blood Urea Nitrogen 9 mg/dL (7-18); Globulin 3.7 g/dL (2.3-3.5); Glucose Level 102 mg/dL (74-106); Lipase 34 U/L (13-75); Potassium 3.7 mEq/L (3.5-5.1)
[2025-05-17 13:35] LABS: AST/SGOT < 10 U/L (15-37)
[2025-05-17 14:39] LABS: Sqamous Epithelial <5 /HPF (None Seen); Urine Crystals Unidentified Few /HPF (None Seen); Urine Culture Reflex Order NOT NEEDED; Urine Microscopic Reflex YN ORDER UMIC; Urine Yeast (Budding) Trace /HPF (None Seen)
--- NOTE | 2025-05-17 14:48 | EDPHYS ---
Physician Documentation [facility] Name: Elizabeth Devlin Age: 19 yrs Sex: Female : 2005 Arrival Date: 05/17/2025 Time: 12:30 Bed 5 Private MD: ED Physician Mode Victor HPI: 05/17 12:39 This 19 yrs old Black Female presents to ER via Ambulatory with complaints of Vomiting. [facility] 12:39 19-year-old female with a past medical history of intellectual disability presents to [facility] the ER for nausea/vomiting and abdominal pain since 9 AM. Mom reports that the patient has vomited 4 times. Denies fever, urinary symptoms, or any bowel changes.. [employer] GUIDE: 12:39 LMP N/A - Depo-provera, Not iw Historical: - Allergies: 12:39 No Known Allergies; iw - PMHx: 12:39 Intellectual speech impediment disability; Asthma; Can only take liquid medication; iw - PSHx: 12:39 foot sx; iw - Immunization history:: Adult Immunizations up to date. - Infectious Disease History:: Denies. - Social history:: Smoking status: Patient denies any tobacco usage or history of. ROS: 12:39 Constitutional: Per HPI [facility] Exam: 12:39 Constitutional: This is a well developed, well nourished patient who is awake, alert, [facility] and in no acute distress. ENT: Nares patent. No nasal discharge, no septal abnormalities noted. Tympanic membranes are normal and external auditory canals are clear. Oropharynx with no redness, swelling, or masses, exudates, or evidence of obstruction, uvula midline. Mucous membranes moist. Cardiovascular: Regular rate and rhythm with a normal S1 and S2. No gallops, murmurs, or rubs. Normal PMI, no JVD. No pulse deficits. Respiratory: Lungs have equal breath sounds bilaterally, clear to auscultation and percussion. No rales, rhonchi or wheezes noted. No increased work of breathing, no retractions or nasal flaring. Skin: Warm, dry with normal turgor. Normal color with no rashes, no lesions, and no evidence of cellulitis. MS/ Extremity: Pulses equal, no cyanosis. Neurovascular intact. Full, normal range of motion. Neuro: Awake and alert, GCS 15, oriented to person, place, time, and situation. Normal gait. 12:39 Abdomen/GI: Inspection: abdomen appears normal, Bowel sounds: normal, Palpation: abdomen is soft and non-tender, Vital Signs: 12:36 BP 118 / 81; Pulse 115; Resp 18; Temp 98.8; Pulse Ox 100% ; Weight 53.52 kg; iw 13:15 BP 107 / 81; Pulse 91; Resp 18; Temp 98.9(O); Pulse Ox 100% ; Pain 0/10; ar8 13:45 BP 109 / 72; Pulse 95; Resp 18; Pulse Ox 100% ; db 14:45 BP 102 / 74; Pulse 104; Resp 16; Pulse Ox 99% on R/A; db 15:33 BP 104 / 79; Pulse 105; Resp 16; Pulse Ox 100% on R/A; iw 13:15 Pain Scale: Adult ar8 MDM: 12:37 Medical Screening Exam initiated [facility] 14:50 Differential diagnosis: Nonspecific abd pain, appendicitis, diverticulitis, viral [facility] gastroenteritis, gastroenteritis, UTI. Data reviewed: vital signs, nurses notes, lab test result(s). I considered the following discharge prescriptions or medication management in the emergency department Medications were administered in the Emergency Department. See MAR. Historians other than the Patient: Parent: Mom. Counseling: I had a detailed discussion with the patient and/or guardian regarding the historical points, exam findings, and any diagnostic results supporting the discharge/admit diagnosis, lab results, to return to the emergency department if symptoms worsen or persist or if there are any questions or concerns that arise at home. Response to treatment: the patient's symptoms have markedly improved after treatment. ED course: Patient presented with nontender abdomen and appeared in no acute distress upon exam. She was able to pass a p.o. challenge and both her and her mother was informed that her labs were within normal range. Advised to return to the ER with any new or worsening symptoms.. 05/17 12:41 Order name: CBC with Diff; Complete Time: 13:54 [facility] 05/17 12:41 Order name: CMP; Complete Time: 13:54 [facility] 05/17 12:41 Order name: Lipase; Complete Time: 13:54 [facility] 05/17 12:43 Order name: UA Rfx Derek Cult if indicated; Complete Time: 14:47 [facility] 05/17 12:43 Order name: COVID-19 Ag + Flu A+B Ag; Complete Time: 13:54 [facility] 05/17 12:43 Order name: Test, Urine; Complete Time: 14:47 [facility] 05/17 12:41 Order name: IV Saline Lock; Complete Time: 13:05 [facility] 05/17 12:41 Order name: Labs collected and sent; Complete Time: 13:05 [facility] 05/17 13:54 Order name: PO challenge; Complete Time: 14:42 [facility] Administered Medications: 13:00 Drug: Ondansetron IVP 4 mg IVP once; over 2 minutes Route: IVP; Site: right antecubital;ar8 13:30 Follow up: Response: No adverse reaction; Nausea is decreased ar8 13:00 Drug: NS 0.9% IV 1000 ml IV at 1 bolus Per protocol; to be given as a bolus over 60 ar8 minutes Route: IV; Rate: 1 bolus; Site: right antecubital; 14:30 Follow up: Response: No adverse reaction; IV Status: Completed infusion; IV Intake: ar8 1000ml Disposition Summary: 05/17/25 14:47 Discharge Ordered Notes: Location: Home [facility] Problem: new [facility] Symptoms: have improved [facility] Condition: Stable [facility] Diagnosis - Viral gastroenteritis [facility] Followup: [facility] - With: Private Physician - When: 2 - 3 days - Reason: Recheck today's complaints Discharge Instructions: - Discharge Summary Sheet [facility] - Viral Gastroenteritis, Adult [facility] Forms: - Medication Reconciliation Form [facility] - Patient Portal Instructions [facility] - Leadership Thank You Letter [facility] Prescriptions: - ondansetron 4 mg Oral Tablet,disintegrating - take 1 tablet ORAL route every 6 hours As needed as needed for nausea and 7 vomiting; 15 tablet; Refills: 0, Product Selection Permitted Addendum: 05/22/2025 06:57 Co-signature as Attending Physician, Mode Victor MD I agree with the assessment and c simon plan of care. Signatures: Dispatcher [employer] Mode Flores MD MD cha Williams, Irene, RN RN Charlene Crandall, TRAFFIC ADMINISTRATOR TRAFFIC ADMINISTRATOR [facility] Guero Grimes RN RN ar8
--- NOTE | 2025-05-17 14:48 | ER ---
Nurse's Notes [facility] Name: Elizabeth Devlin Age: 19 yrs Sex: Female : 2005 Arrival Date: 05/17/2025 Time: 12:30 Bed 5 Private MD: Diagnosis: Viral gastroenteritis Presentation: 05/17 12:36 Chief complaint: Parent and/or Guardian states: vomiting that started this morning iw about 09:30. Has vomited 4 times since then. Denies fever. Denies diarrhea. Coronavirus screen: Vaccine status: Patient reports receiving the 2nd dose of the covid vaccine. Ebola Screen: No symptoms or risks identified at this time. Initial Sepsis Screen: Does the patient meet any 2 criteria? HR > 90 bpm. Does the patient have a suspected source of infection? No. Patient's initial sepsis screen is negative. Risk Assessment: Do you want to hurt yourself or someone else? Patient reports no desire to harm self or others. Onset of symptoms was May 17, 2025 at 09:30. 12:36 Method Of Arrival: Ambulatory iw 12:36 Acuity: HARIS 3 iw Triage Assessment: 12:39 General: Appears in no apparent distress. well groomed, well developed, well nourished, iw Behavior is calm, cooperative, appropriate for age, Reports n/v since 09:30 this morning. Pain: Complains of pain in abdomen Pain does not radiate. EENT: No signs and/or symptoms were reported regarding the EENT system. Neuro: Level of Consciousness is awake, alert, obeys commands, Oriented to person, situation, hx intellectual disability. Cardiovascular: Patient's skin is warm and dry. Respiratory: Airway is patent Trachea midline Respiratory effort is even, unlabored, Respiratory pattern is regular, symmetrical. GI: Abdomen is round non-distended, Reports nausea, vomiting, since 09:30. : No signs and/or symptoms were reported regarding the genitourinary system. Derm: Skin is intact, is healthy with good turgor, Skin is normal. Musculoskeletal: Circulation, motion, and sensation intact. Range of motion: intact in all extremities. DIRECTOR MEDICAL WRITING: 12:39 LMP N/A - Depo-provera, Not iw Historical: - Allergies: 12:39 No Known Allergies; iw - PMHx: 12:39 Intellectual speech impediment disability; Asthma; Can only take liquid medication; iw - PSHx: 12:39 foot sx; iw - Immunization history:: Adult Immunizations up to date. - Infectious Disease History:: Denies. - Social history:: Smoking status: Patient denies any tobacco usage or history of. Screenin:15 [facility] ED Fall Risk Assessment (Adult) History of falling in the last 3 months, ar8 including since admission No falls in past 3 months (0 pts) Confusion or Disorientation No (0 pts) Intoxicated or Sedated No (0 pts) Impaired Gait No (0 pts) Mobility Assist Device Used No (0 pt) Altered Elimination No (0 pt) Score/Fall Risk Level 0 - 2 = Low Risk Oriented to surroundings, Maintained a safe environment. Abuse screen: Denies threats or abuse. Nutritional screening: No deficits noted. Tuberculosis screening: No symptoms or risk factors identified. Assessment: 13:00 General: Appears in no apparent distress. Behavior is calm, cooperative. Pain: Denies ar8 pain. Neuro: Level of Consciousness is awake, alert, obeys commands, Oriented to Appropriate for age. Cardiovascular: Rhythm is sinus tachycardia. Respiratory: Airway is patent Respiratory effort is even, unlabored, Respiratory pattern is regular, symmetrical. 13:00 GI: Abdomen is flat, Abd is soft and non tender Reports nausea. ar8 Vital Signs: 12:36 BP 118 / 81; Pulse 115; Resp 18; Temp 98.8; Pulse Ox 100% ; Weight 53.52 kg; iw 13:15 BP 107 / 81; Pulse 91; Resp 18; Temp 98.9(O); Pulse Ox 100% ; Pain 0/10; ar8 13:45 BP 109 / 72; Pulse 95; Resp 18; Pulse Ox 100% ; db 14:45 BP 102 / 74; Pulse 104; Resp 16; Pulse Ox 99% on R/A; db 15:33 BP 104 / 79; Pulse 105; Resp 16; Pulse Ox 100% on R/A; iw 13:15 Pain Scale: Adult ar8 ED Course: 12:33 Patient arrived in ED. cj3 12:37 Charlene Lawrence FNP [facility] jh7 12:37 Mode Victor MD is Attending Physician. jh7 12:38 Triage completed. iw 12:39 Arm band placed on Patient placed in an exam room. iw 12:57 Guero Grimes, RN is Primary Nurse. ar8 13:05 COVID-19 Ag + Flu A+B Ag Sent. ts3 13:05 Initial lab(s) drawn, by dental laboratory supervisor, sent to lab. Inserted saline lock: 20 gauge in right ts3 antecubital area, using aseptic technique. Blood collected. Flushed with 10 mL NS. 13:15 Bed in low position. Call light in reach. Side rails up X2. Provided Education on: plan ar8 of care. Client placed on continuous cardiac and pulse oximetry monitoring. NIBP monitoring applied. 13:15 No provider procedures requiring assistance completed. ar8 15:56 IV discontinued, intact, bleeding controlled, No redness/swelling at site. Pressure ar8 dressing applied. Administered Medications: 13:00 Drug: Ondansetron IVP 4 mg IVP once; over 2 minutes Route: IVP; Site: right antecubital;ar8 13:30 Follow up: Response: No adverse reaction; Nausea is decreased ar8 13:00 Drug: NS 0.9% IV 1000 ml IV at 1 bolus Per protocol; to be given as a bolus over 60 ar8 minutes Route: IV; Rate: 1 bolus; Site: right antecubital; 14:30 Follow up: Response: No adverse reaction; IV Status: Completed infusion; IV Intake: ar8 1000ml Medication: 13:15 VIS not applicable for this client. ar8 Intake: 14:30 IV: 1000ml; Total: 1000ml. ar8 Outcome: 14:47 Discharge ordered by . 7 15:56 Discharged to home ambulatory, ar8 15:56 Condition: stable 15:56 Discharge instructions given to patient, family, Instructed on discharge instructions, follow up and referral plans. medication usage, Demonstrated understanding of instructions, follow-up care, medications, Prescriptions given X 1, 15:57 Patient left the ED. ar8 Signatures: Lynette Oshea, RN MAGGIE iw Charlene Lawrence, FOREIGN LANGUAGE STENOGRAPHER FOREIGN LANGUAGE STENOGRAPHER 7 Milvia Gutierrez, Dang Ballesteros RN 3 Judi Moore 3 Guero Grimes, RN RN ar8
[2025-05-17 16:24] VITALS: TEMP 98.9
[2025-05-17 16:29] VITALS: BP 104/79; O2SAT 100
== END 2025-05-17 15:57 | disposition home or self-care (01) ==
LOC: ER 12:30
DX: A08.4 Viral intestinal infection, unspecified (principal); Z11.52 Encounter for screening for COVID-19
CPT/HCPCS: 96361; 85025; 81001; 36415; 81025; 83690; 80053; 96374; 99284; 87428; J2405; J7030

== ENCOUNTER 2025-05-23 18:19 | Observation (INO) | payer OTHER ==
--- OUTSIDE RECORDS SUMMARY | 2025-05-23 18:23 | XMS REPORT | Continuity of Care Document ---
Author Name Unknown Address [address] [place] [address] [facility] Address [address] [place] [address] Care Team Providers Care Staff Antisubmarine Officer Name Role Phone PCP, PATIENT DOES NOT HAVE A Primary Care Physic tyson Unavailable Ron Borjas Attending Clinician [phone] [facility] Karey Benoit Attending Clinician + KAREY GARDNER Attending Clinician Unavail able RON ORONA Attending Clinician Unavailable DANIEL JACQUES Attending Clinician DANIEL Lux Attending Clinician Krissy krishna Nurse, [facility] Attending Clinician Unavailable Vinay Smallwood MD Attending Clinician [phone] VINAY SMALLWOOD Attending Clinician Unavailable Kitty Donaldson MD Attending Clinician [phone] Rupert Coughlin NP Attending Clinician [phone] RUPERT COUGHLIN Attending Clinician Unavailaniceto umanzor Doctor Unassigned, [place]um[place]la Attending Clinician U LUPE JeffreyS EDI Attending Clinician Unavail able Payers Payer Name Policy Type Policy Number Effective Date Expirati on Date Source Problems Condition Name Condition Details Condition Category Status Onset Date Resolution Date Last Treatment Date Treating Clinician Comments Source Menorrhagi a with regular cycle Menorrhagi a with regular cycle Disease Active 12-09 00:00: 00 [facility] 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 ASSERTION Not [facility] Alcoholic beverage intake 2025-04-22 00:00:00 2025-04-22 00:00:00 Current non-drinker of alcohol (finding) [facility] History of Social function 2025-01-28 00:00:00 2025-01-28 00:00:00 [facility] Alcohol intake 2023-11-21 00:00:00 2023-11-21 00:00:00 Current non-drinker of alcohol (finding) [facility] Exposure to SARS-CoV-2 (event) 2022-11-28 00:00:00 2022-12-08 13:33:00 Not sure [facility] Tobacco use and exposure 2022-12-08 00:00:00 2022-12-08 00:00:00 Smokeless tobacco non-user [facility] Tobacco Comment 2022-12-08 00:00:00 2022-12-08 00:00:00 No smoke exposure [facility] Sex assigned at 2004 00:00:00 2005 00:00:00 [facility] Smoking Status Start Date Stop Date Source Never smoked tobacco [facility] Medications Ordered Medication Name Filled Medication Name Start Date Stop Date Current Medication? Ordering Clinician Indication Dosage Frequency Signature (SIG) Comments Components Source medroxyPROG ESTERone (DEPO-PROVE RA) syringe 150 mg 04-22 13:30: 00 06-16 14:29 :00 Yes [id number] 150mg 150 mg, Intramuscu lar, [id number], 5 doses, First dose on Tue04/22/25 at 0830, Last dose on Tue03/24/26 at 0830, Routine [facility] medroxyPROG ESTERone (DEPO-PROVE RA) syringe 150 mg 02-21 15:45: 00 01-28 12:56 :00 No [id number] 150mg 150 mg, Intramuscu lar, [id number], 5 doses, First dose on Tue02/22/24 at 1045, Last dose on Tue01/23/25 at 1045, Routine [facility] albuterol sulfate (PROAIR HFA INHALE) 02-21 10:02: 58 04-22 00:00 :00 No Inhale. [facility] levalbutero l 0.31 mg/3 mL nebulizer solution 02-21 10:02: 58 04-22 00:00 :00 No 45mg Inhale 45 mg. [facility] medroxyPROG ESTERone (DEPO-PROVE RA) injection 150 mg 11-17 14:15: 00 11-17 13:27 :00 No [id number] 150mg 150 mg, Intramuscu lar, ONCE, 1 dose, On Tue11/18/23 at 0915, Routine [facility] medroxyPROG ESTERone (DEPO-PROVE RA) injection 150 mg 08-26 15:15: 00 08-26 14:22 :00 No [id number] 150mg [facility] fluticasone propionate 110 mcg/actuati on inhaler 1-05 00:00: 00 Yes INHALE 1 PUFF BY MOUTH 2 TIMES PER DAY [facility] medroxyPROG ESTERone (DEPO-PROVE RA) injection 150 mg 2022-08 14:45: 00 06-03 14:06 :00 No [id number] 150mg [facility] medroxyPROG ESTERone (DEPO-PROVE RA) injection 150 mg 03-07 20:30: 00 03-07 19:42 :00 No [id number] 150mg [facility] levalbutero l 0.31 mg/3 mL nebulizer solution 03-07 14:41: 29 Yes 45mg Inhale 45 mg. [facility] medroxyPROG ESTERone (DEPO-PROVE RA) injection 150 mg 12-13 14:45: 00 12-13 13:53 :00 No [id number] 150mg [facility] levalbutero l 0.31 mg/3 mL nebulizer solution 12-13 08:39: 47 Yes 45mg Inhale 45 mg. [facility] montelukast 10 mg tablet 12-08 13:58: 04 Yes 10mg Take 1 tablet by mouth. [facility] loratadine (CLARITIN ORAL) 12-08 13:57: 46 Yes Take by mouth. [facility] beclomethas one dipropionat e (QVAR INHALE) 12-08 13:57: 46 Yes Inhale. [facility] estradiol (ESTRACE) 1 mg tablet 10-30 00:00: 00 03-07 00:00 :00 No 1mg Take 1 tablet by mouth daily. [facility] beclomethas one dipropionat e (QVAR INHALE) 09-14 14:40: 51 Yes Inhale. [facility] loratadine (CLARITIN ORAL) 09-14 14:39: 45 Yes Take by mouth. [facility] montelukast 10 mg tablet 09-14 14:39: 45 Yes 10mg Take 10 mg by mouth. [facility] incontinenc e alarms (MISC. DEVICES MISC) 2015-0 05-05 00:00: 00 04-22 00:00 :00 No 1{devic e} 1 Device. [facility] Immunizations Ordered Immunization Name Filled Immunization Name Date Status Comments Source Flu Injectable MDCK Pres-Free (FLUCELVAX) 2025-04-22 00:00:00 Completed [facility] SARS-COV-2 COVID-19 PFIZER VACCINE 2020-12-24 00:00:00 Completed [facility] SARS-COV-2 COVID-19 PFIZER VACCINE 2020-12-03 00:00:00 Completed [facility] Vital Signs Vital Name Observation Time Observation Value Comments S ource Systolic blood pressure 2025-04-22 13:04:00 113 mm[Hg] [facility] Diastolic blood pressure 2025-04-22 13:04:00 74 mm[Hg] [facility] Heart rate 2025-04-22 13:04:00 89 /min [facility] Body temperature 2025-04-22 13:04:00 36.22 Nilda [facility] Respiratory rate 2025-04-22 13:04:00 17 /min [facility] Body height 2025-04-22 13:04:00 157.5 cm [facility] Body weight 2025-04-22 13:04:00 53.723 kg [facility] BMI 2025-04-22 13:04:00 21.66 kg/m2 [facility] Systolic blood pressure 2025-01-28 12:54:00 111 mm[Hg] [facility] Diastolic blood pressure 2025-01-28 12:54:00 76 mm[Hg] [facility] Heart rate 2025-01-28 12:54:00 83 /min [facility] Body temperature 2025-01-28 12:54:00 36.67 Nilda [facility] Respiratory rate 2025-01-28 12:54:00 18 /min [facility] Body height 2025-01-28 12:54:00 157.5 cm [facility] Body weight 2025-01-28 12:54:00 53.524 kg [facility] BMI 2025-01-28 12:54:00 21.58 kg/m2 [facility] Systolic blood pressure 2024-11-05 13:46:00 125 mm[Hg] [facility] Diastolic blood pressure 2024-11-05 13:46:00 81 mm[Hg] [facility] Heart rate 2024-11-05 13:46:00 93 /min [facility] Body temperature 2024-11-05 13:46:00 37.06 Nilda [facility] Respiratory rate 2024-11-05 13:46:00 16 /min [facility] Body height 2024-11-05 13:46:00 157.5 cm [facility] Body weight 2024-11-05 13:46:00 56.246 kg [facility] BMI 2024-11-05 13:46:00 22.68 kg/m2 [facility] Systolic blood pressure 2024-08-09 14:12:00 114 mm[Hg] [facility] Diastolic blood pressure 2024-08-09 14:12:00 77 mm[Hg] [facility] Heart rate 2024-08-09 14:12:00 86 /min [facility] Body temperature 2024-08-09 14:12:00 36.72 Nilda [facility] Respiratory rate 2024-08-09 14:12:00 17 /min [facility] Body height 2024-08-09 14:12:00 157.5 cm [facility] Body weight 2024-08-09 14:12:00 56.473 kg [facility] BMI 2024-08-09 14:12:00 22.77 kg/m2 [facility] Systolic blood pressure 2024-05-16 13:35:00 120 mm[Hg] [facility] Diastolic blood pressure 2024-05-16 13:35:00 73 mm[Hg] [facility] Heart rate 2024-05-16 13:35:00 81 /min [facility] Body temperature 2024-05-16 13:35:00 36.5 Nilda [facility] Respiratory rate 2024-05-16 13:35:00 19 /min [facility] Body height 2024-05-16 13:35:00 157.5 cm [facility] Body weight 2024-05-16 13:35:00 58.514 kg [facility] BMI 2024-05-16 13:35:00 23.59 kg/m2 [facility] Systolic blood pressure 2024-02-22 14:55:00 115 mm[Hg] [facility] Diastolic blood pressure 2024-02-22 14:55:00 77 mm[Hg] [facility] Heart rate 2024-02-22 14:55:00 85 /min [facility] Body temperature 2024-02-22 14:55:00 35.89 Nilda [facility] Respiratory rate 2024-02-22 14:55:00 18 /min [facility] Body height 2024-02-22 14:55:00 157.5 cm [facility] Body weight 2024-02-22 14:55:00 59.33 kg [facility] BMI 2024-02-22 14:55:00 23.92 kg/m2 [facility] Systolic blood pressure 2023-11-18 13:20:00 112 mm[Hg] [facility] Diastolic blood pressure 2023-11-18 13:20:00 75 mm[Hg] [facility] Heart rate 2023-11-18 13:20:00 87 /min [facility] Body temperature 2023-11-18 13:20:00 36.72 Nilda [facility] Respiratory rate 2023-11-18 13:20:00 16 /min [facility] Body height 2023-11-18 13:20:00 157.5 cm [facility] Body weight 2023-11-18 13:20:00 61.689 kg [facility] BMI 2023-11-18 13:20:00 24.87 kg/m2 [facility] Oxygen saturation in Arterial blood by Pulse oximetry 2023-11-18 13:20:00 99 /min [facility] Systolic blood pressure 2023-08-26 14:20:00 127 mm[Hg] [facility] Diastolic blood pressure 2023-08-26 14:20:00 85 mm[Hg] [facility] Heart rate 2023-08-26 14:20:00 93 /min [facility] Body temperature 2023-08-26 14:20:00 36.89 Nilda [facility] Respiratory rate 2023-08-26 14:20:00 16 /min [facility] Body height 2023-08-26 14:20:00 157.5 cm [facility] Body weight 2023-08-26 14:20:00 62.37 kg [facility] BMI 2023-08-26 14:20:00 25.15 kg/m2 [facility] Body mass index (BMI) [Percentile] Per age and sex 2023-08-26 14:20:00 80.93 % [facility] Oxygen saturation in Arterial blood by Pulse oximetry 2023-08-26 14:20:00 99 /min [facility] Systolic blood pressure 2023-06-03 13:56:00 124 mm[Hg] [facility] Diastolic blood pressure 2023-06-03 13:56:00 82 mm[Hg] [facility] Heart rate 2023-06-03 13:56:00 82 /min [facility] Body temperature 2023-06-03 13:56:00 36.89 Nilda [facility] Respiratory rate 2023-06-03 13:56:00 16 /min [facility] Body height 2023-06-03 13:56:00 157.5 cm [facility] Body weight 2023-06-03 13:56:00 59.557 kg [facility] BMI 2023-06-03 13:56:00 24.02 kg/m2 [facility] Body mass index (BMI) [Percentile] Per age and sex 2023-06-03 13:56:00 74.69 % [facility] Oxygen saturation in Arterial blood by Pulse oximetry 2023-06-03 13:56:00 98 /min [facility] Systolic blood pressure 2023-03-07 19:40:00 127 mm[Hg] [facility] Diastolic blood pressure 2023-03-07 19:40:00 81 mm[Hg] [facility] Heart rate 2023-03-07 19:40:00 116 /min [facility] Body temperature 2023-03-07 19:40:00 36.56 Nilda [facility] Respiratory rate 2023-03-07 19:40:00 16 /min [facility] Body height 2023-03-07 19:40:00 157.5 cm [facility] Body weight 2023-03-07 19:40:00 58.559 kg [facility] BMI 2023-03-07 19:40:00 23.61 kg/m2 [facility] Body mass index (BMI) [Percentile] Per age and sex 2023-03-07 19:40:00 72.29 % [facility] Oxygen saturation in Arterial blood by Pulse oximetry 2023-03-07 19:40:00 97 /min [facility] Systolic blood pressure 2022-12-13 13:40:00 120 mm[Hg] [facility] Diastolic blood pressure 2022-12-13 13:40:00 76 mm[Hg] [facility] Heart rate 2022-12-13 13:40:00 80 /min [facility] Respiratory rate 2022-12-13 13:40:00 16 /min [facility] Body height 2022-12-13 13:40:00 157.5 cm [facility] Body weight 2022-12-13 13:40:00 56.382 kg [facility] BMI 2022-12-13 13:40:00 22.73 kg/m2 [facility] Body mass index (BMI) [Percentile] Per age and sex 2022-12-13 13:40:00 65.42 % [facility] Oxygen saturation in Arterial blood by Pulse oximetry 2022-12-13 13:40:00 98 /min [facility] Systolic blood pressure 2022-12-08 18:57:00 112 mm[Hg] [facility] Diastolic blood pressure 2022-12-08 18:57:00 72 mm[Hg] [facility] Heart rate 2022-12-08 18:57:00 95 /min [facility] Respiratory rate 2022-12-08 18:57:00 18 /min [facility] Body height 2022-12-08 18:57:00 157.5 cm [facility] Body weight 2022-12-08 18:57:00 57.153 kg [facility] BMI 2022-12-08 18:57:00 23.05 kg/m2 [facility] Body mass index (BMI) [Percentile] Per age and sex 2022-12-08 18:57:00 68.38 % [facility] Procedures Procedure Date / Time Performed Performing Clinicia n Source FLU VACC ([id number]), 6 MO-64 YRS, .5ML, IM, TIV (FLUCELVAX) 2025-04-22 13:36:24 Ron Orona [facility] POCT TEST 2022-12-13 00:00:00 Cale Coughlin [facility] ASSIGNMENT OF BENEFITS 2022-12-08 18:31:03 Docto r Unassigned, Chumuckla [facility] Encounters Start Date/Time End Date/Time Encounter Type Admission Type Attending Clinicians Care Facility Care Department Encounter ID Source 2025-05-13 08:06:03 2025-05-13 08:06:03 Outpatient S[facility] SFA [id number] Rm Homer Reggie 2025-04-22 00:00:00 2025-04-22 08:45:50 Letter (Out) Ron Orona [facility] MED[facility] SPECIAL[facility] 1.2.840.114 350.1.13.10 4.2.7.2.686 [id number] 107 [id number] [facility] 2025-04-22 08:00:00 2025-04-22 08:42:53 Office Visit R Ron Orona [facility] D[facility]ITAL MEDIA SPECIALIST [facility] & CHILD [facility] 1.2.840.114 350.1.13.10 4.2.7.2.686 [id number] 107 [id number] [facility] 2025-01-28 08:00:00 2025-01-28 08:02:07 Nurse Visit R Visit, Oleg Nurse Karey Gardner C Visit, Oleg Nurse [facility] MEDIA SPECIALIST [facility] & CHILD [facility] 1.2840.114 350.1.13.10 4.2.7.2.686 [id number] [facility] 2024-11-05 09:00:00 2024-11-05 09:00:00 Nurse Visit Visit, Oleg Nurse Karey Gardner C Visit, Oleg Nurse [facility] DIG[facility] MEDIA SPECIALIST [facility] CHILD [facility] 1..840.114 350.1.13.10 4.2.7.2.686 [id number] [facility] 2024-11-05 00:00:00 2024-11-05 08:57:42 Letter (Out) Karey Gardner [facility] DIGITAL MEDIA SPECIALIST [facility] CHILD [facility] 1.2.840.114 350.1.13.10 4.2.7.2.686 [id number] 107 [id number] [facility] 2024-11-05 09:00:00 2024-11-05 08:56:22 Outpatient R KAREY GARDNER [facility] [id number] [facility] 2024-08-09 00:00:00 2024-08-09 15:32:27 Telephone Ron Orona [facility] MEDIA SPECIALIST [facility] CHILD [facility] 1.2.840.114 350.1.13.10 4.2.7.2.686 [id number] [facility] 2024-08-09 09:00:00 2024-08-09 09:15:00 Nurse Visit Visit, StephanJoep Nurse Karey Gardner C Visit, Matias-Rmchp Nurse [facility] MEDIA SPECIALIST [facility] & CHILD [facility] 1.2840.114 350.1.13.10 4.2.7.2.686 [id number] [facility] 2024-08-09 09:00:00 2024-08-09 09:00:00 Outpatient KAREY TINSLEY [facility] [id number] [facility] 2024-05-16 09:00:00 2024-05-16 09:00:00 Nurse Visit Visit, Matias-Rmzofia Nurse Karey Gardner C Visit, Matias-Rmchp Nurse [facility] 1..840.114 350.1.13.10 4.2.7.2.686 [id number] 107 [id number] [facility] 2024-05-16 00:00:00 2024-05-16 08:52:28 Letter (Out) Ron Orona [facility] D[facility] MEDIA SPECIALIST [facility] CHILD [facility] 1.840.114 350.1.13.10 4.2.7.2.686 [id number] [facility] 2024-05-16 00:00:00 2024-05-16 08:49:33 Letter (Out) Ron Orona [facility] .840.114 350.1.13.10 4.2.7.2.686 [id number] 107 [id number] [facility] 2024-05-16 09:00:00 2024-05-16 08:47:20 Outpatient KAREY TINSLEY [facility] [id number] [facility] 2024-03-30 00:00:00 2024-03-30 11:28:44 Telephone Ron Orona [facility] DIGITAL MEDIA SPECIALIST [facility] 1.840.114 350.1.13.10 4.2.7.2.686 [id number] [facility] 2024-02-22 09:30:00 2024-02-22 10:46:27 Outpatient R RON ORONA [facility] [id number] [facility] 2024-02-22 09:30:00 2024-02-22 10:46:27 Office Visit Ron Orona [facility] DIG[facility] MEDIA SPECIALIST [facility] 1.0.114 350.1.13.10 4.2.7.2.686 [id number] [facility] 2024-02-16 09:30:00 2024-02-16 09:30:00 Outpatient R RON ORONA [facility] [id number] [facility] 2023-11-18 08:30:00 2023-11-18 08:30:00 Nurse Visit Nurse, Peg [facility] 1..114 350.1.13.10 4.2.7.2.686 [id number] [facility] 2023-11-18 08:30:00 2023-11-18 08:20:27 Outpatient Nicol [facility] [id number] [facility] 2023-11-18 00:00:00 2023-11-18 00:00:00 Letter (Out) Kitty Donaldson [facility] 1..114 350.1.13.10 4.2.7.2.686 [id number] 134 [id number] [facility] 2023-08-26 08:30:00 2023-08-26 08:30:00 Nurse Visit Nurse, Peg [facility] 1..114 350.1.13.10 4.2.7.2.686 [id number] [facility] 2023-08-26 08:30:00 2023-08-26 08:21:56 Outpatient R VINAY SMALLWOOD [facility] [id number] [facility] 2023-08-26 00:00:00 2023-08-26 00:00:00 Letter (Out) Vinay Smallwood [facility] 1.2.840.114 350.1.13.10 4.2.7.2.686 [id number] [facility] 2023-06-08 09:30:00 2023-06-08 09:30:00 Outpatient R [facility] [id number] [facility] 2023-06-08 09:30:00 2023-06-08 09:30:00 Outpatient R [facility] [id number] [facility] 2023-06-03 10:45:00 2023-06-03 10:45:00 Nurse Visit Nurse, [facility] Jose-Lizeth negrete [facility] 1.2.840.114 350.1.13.10 4.2.7.2.686 [id number] [facility] 2023-06-03 10:45:00 2023-06-03 08:56:37 Outpatient R JOSE-LIZETH SLEIFL JOSE-LIZETH S DANIEL [facility] [id number] [facility] 2023-06-03 00:00:00 2023-06-03 00:00:00 Letter (Out) Jose-Priscilla Brownsol [facility] 1.2.840.114 350.1.13.10 4.2.7.2.686 [id number] [facility] 2023-06-02 00:00:00 2023-06-02 00:00:00 Telephone Jose-Lizeth negrete [facility] 1.2.840.114 350.1.13.10 4.2.7.2.686 [id number] 134 [id number] [facility] 2023-05-30 15:45:00 2023-05-30 15:45:00 Outpatient R [facility] [id number] [facility] 2023-05-26 00:00:00 2023-05-26 00:00:00 Telephone Vinay Smallwood Igor [facility] 1.2.840.114 350.1.13.10 4.2.7.2.686 [id number] 134 [id number] [facility] 2023-03-07 16:00:00 2023-03-07 16:00:00 Nurse Visit Nurse, [facility] 1.2.840.114 350.1.13.10 4.2.7.2.686 [id number] [facility] 2023-03-07 16:00:00 2023-03-07 14:38:42 Outpatient R RUPERT COUGHLIN CHERYAL [facility] [id number] [facility] 2022-12-13 09:00:00 2022-12-13 09:00:00 Nurse Visit Nurse, [facility] 1.2.840.114 350.1.13.10 4.2.7.2.686 [id number] [facility] 2022-12-13 09:00:00 2022-12-13 08:51:53 Outpatient R RUPERT COUGHLIN CHERYAL [facility] [id number] [facility] 2022-12-13 08:00:00 2022-12-13 08:00:00 Outpatient R [facility] [id number] [facility] 2022-12-13 00:00:00 2022-12-13 00:00:00 Letter (Out) Caprice [facility] 1.2.840.114 350.1.13.10 4.2.7.2.686 [id number] [facility] 2022-12-09 00:00:00 2022-12-09 00:00:00 Letter (Out) Caprice [facility] 1.2.840.114 350.1.13.10 4.2.7.2.686 [id number] [facility] 2022-12-09 00:00:00 2022-12-09 00:00:00 [facility] 1.2.840.114 350.1.13.10 4.2.7.2.686 [id number] [facility] 2022-12-09 00:00:00 2022-12-09 00:00:00 Letter (Out) Caprice [facility] 1.2.840.114 350.1.13.10 4.2.7.2.686 [id number] [facility] 2022-12-08 14:00:00 2022-12-08 14:15:07 Out[facility] [id number] [facility] 2022-12-08 14:00:00 2022-12-08 14:15:07 Office Visit Rupert Coughlin [facility] 1.2.840.114 350.1.13.10 4.2.7.2.686 [id number] [facility] 2022-12-08 00:00:00 2022-12-08 00:00:00 Orders Only Doctor Unassigned, Chumuckla [facility] 1.2.840.114 350.1.13.10 4.2.7.2.686 [id number] [facility] 2020-12-24 08:30:00 2020-12-24 08:30:00 Outpatient Nicol ELEAZARSG [facility] [id number] [facility] 2020-12-03 11:30:00 2020-12-03 11:30:00 Outpatient SG RENEE [facility] [id number] [facility] 2020-12-03 09:10:00 2020-12-03 09:10:00 Outpatient [facility] [id number] [facility] Results Test Description Test Time Test Comments Results Result Co mments Source [facility] Notes Date/Time Note Provider Source 2024-08-09 15:26:23 Spoke with pt's mother, Tracy Moon, regarding depo use and the development [...] that time. KONRAD Lindquist 08/09/2024 3:31 PM [facility] 2024-08-09 12:53:44 Nael Moon is a 18 year old female Mother requesting to speak with nurse/ provider regarding Depo, states she has been reading about depo being on recall and checked on [employer] about the lawsuits due brain tumors. Please call [phone] IE Sanchez [facility] 2024-03-30 11:28:23 Called MOP, advised no recall at this time. MOP verbalized understanding. Kinsey Felipe RN 03/30/24 11:28 AM Kinsey Felipe RN [facility] 2024-03-30 09:13:37 Nael Moon is a 18 year old female Mother of pt Tracy is calling requesting to speak with a nurse. She is asking if there has been a recall on depo provera injections. Please contact her at [phone]. Carol Leon [facility]
[2025-05-23] MEDS ORDERED: METOCLOPRAMIDE 10 MG/2mL INJ ONE (18:50)
[2025-05-23] MEDS ORDERED: DIPHENHYDRAMINE 50 MG/ML VIAL ONE (18:50)
[2025-05-23] MEDS ORDERED: NA CHLORIDE 0.9% 1,000 ML ONE ×2 (18:50→22:06)
[2025-05-23 18:56] LABS: Absolute Lymphocytes (CBC) 1.8 K/uL (0.7-4.9); Hematocrit 42.0 % (36.0-45.0); Hemoglobin 14.2 g/dL (12.0-15.0); MCH 30.2 pg (27.0-35.0); MCHC 33.7 g/dL (32.0-36.0); MCV 89.6 fL (80-100); MPV 7.6 fL (7.6-11.3); Nucleated RBC Absolute Count 0.0 (0-0); Nucleated Red Blood Cells % 0.1 % (0-0); RBC Red Blood Cell Count 4.69 M/uL (3.86-4.86); White Blood Count 5.50 thou/uL (4.3-10.9)
[2025-05-23] MEDS ORDERED: MORPHINE 4 MG/ML SYR ONE (19:05)
[2025-05-23 19:14] LABS: ALT/SGPT 15 U/L (13-56); Albumin 3.8 g/dL (3.4-5.0); Albumin/Globulin Ratio 1.0 (1.1-1.8); Alkaline Phosphatase 66 U/L (45-117); Anion Gap 9.3 mEq/L (5.0-15.0); BUN Blood Urea Nitrogen 9 mg/dL (7-18); Globulin 3.7 g/dL (2.3-3.5); Glucose Level 120 mg/dL (74-106); Lipase 38 U/L (13-75); Potassium 3.3 mEq/L (3.5-5.1)
[2025-05-23 19:17] LABS: AST/SGOT < 10 U/L (15-37)
--- NOTE | 2025-05-23 21:13 | RAD REPORT ---
EXAM: CT brain without contrast HISTORY: HEADACHE COMPARISON: 04/27/2024 TECHNIQUE: Multiple contiguous axial images were obtained and a CT of the brain without contrast. Sag ittal and coronal reformats were performed. One or more of the following dose reduction techniques were used: Automated exposure control, adjust ment of the mA and/or kV according to patient size, and/or iterative reconstruction. FINDINGS: No evidence of hydrocephalus, intracranial hemorrhage, or extra-axial fluid collection. The brain is normal in morphology. No evidence of midline shift or areas of brain edema. The calvarium is intact. The visualized paranasal sinuses and mastoid air cells are essentially clear . IMPRESSION: No evidence of acute intracranial abnormality.
--- NOTE | 2025-05-23 21:15 | RAD REPORT ---
EXAMINATION: CT ABDOMEN AND PELVIS WITH CONTRAST CLINICAL INDICATION: ABD PAIN TECHNIQUE: CT abdomen and pelvis was performed, after the administration of IV contrast, as per [facility] protocol. Axial, sagittal and coronal reconstructions were obtained. One or more of the following dose reduction techniques were used: Automated exposure control, adjustment of the mA and k V according to patient size, and iterative reconstruction. Unless otherwise specified, incidental findings do not require dedicated imaging follow-up. COMPARISON: No prior exam. FINDINGS: LOWER CHEST: The visualized lung bases are clear. Small hiatal hernia. LIVER: Normal in size and contour. No focal lesion. Grossly unremarkable gallbladder. SPLEEN: Normal size. No focal lesion. PANCREAS: No mass, ductal dilation, or carolyn-pancreatic fluid. ADRENALS: Normal; no mass. KIDNEYS: Normal size and contour. No hydronephrosis. GASTROINTESTINAL TRACT: Severe fecal impaction in the rectum and sigmoid colon throughout the majorit y of the colon. APPENDIX: Appendix not visualized, but no inflammatory changes in region of appendix. No free air or free fluid. LYMPH NODES: No lymphadenopathy. MUSCULOSKELETAL: No acute or suspicious osseous abnormality. IMPRESSION: Severe fecal impaction in the colon and particularly the rectosigmoid colon.
--- NOTE | 2025-05-23 21:25 | RAD REPORT ---
EXAMINATION: ONE VIEW CHEST XR CLINICAL INDICATION: vomiting TECHNIQUE: Frontal chest projection is submitted. Examination is limited by patient positioning and t echnique. COMPARISON: 04/27/2024 FINDINGS: The lungs are well inflated and clear. The heart is normal in size. No displaced fractures identified . IMPRESSION: No acute intrathoracic abnormalities.
[2025-05-23] MEDS ORDERED: BISACODYL 10 MG RECTAL SUPP ONE (22:06)
[2025-05-23] MEDS ORDERED: LACTULOSE 20 GM/30 ML UCUP ONE (22:07)
[2025-05-24] MEDS ORDERED: MINERAL OIL ENEMA 135 ML BTL PR ONE (00:01)
[2025-05-24] MEDS ORDERED: NA CHLORIDE 0.9% 1,000 ML ONE (01:13)
--- NOTE | 2025-05-24 01:25 | EDPHYS ---
Physician Documentation [facility] Name: Elizabeth Devlin Age: 19 yrs Sex: Female : 2005 Arrival Date: 05/23/2025 Time: 18:19 Bed 9 Private MD: ED Physician Mode Victor HPI: 05/23 18:45 This 19 yrs old Black Female presents to ER via EMS with complaints of Abdominal Pain. cp 18:45 The patient presents with abdominal pain that is diffuse, abdominal distention that is cp diffuse. Onset: The symptoms/episode began/occurred today. Associated signs and symptoms: Pertinent positives: nausea and vomiting, headache. Patient is non-verbal. Presents to ED with mother who is concerned that abdomen looks distended, patient appears uncomfortable and to have a headache. 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 - Infectious Disease History:: Denies. - Social history:: Smoking status: Patient denies any tobacco usage or history of. ROS: 18:50 Constitutional: Negative for body aches, chills, fever, poor PO intake, cp 18:50 Eyes: Negative for injury, pain, redness, and discharge, cp 18:50 ENT: Negative for drainage from ear(s), ear pain, sore throat, difficulty swallowing, difficulty handling secretions, 18:50 Cardiovascular: Negative for chest pain, edema, palpitations, 18:50 Respiratory: Negative for cough, shortness of breath, wheezing, 18:50 Abdomen/GI: Positive for abdominal pain, nausea, vomiting, abdominal distension, 18:50 Neuro: Positive for headache, Negative for altered mental status, syncope, 18:50 All other systems are negative, Exam: 18:50 Head/Face: Normocephalic, atraumatic. cp 18:50 Constitutional: The patient appears in no acute distress, alert, awake, non-diaphoretic, non-toxic, well developed, well nourished, uncomfortable, 18:50 Eyes: Periorbital structures: appear normal, Conjunctiva: normal, no exudate, no injection, Sclera: no appreciated abnormality, Lids and lashes: appear normal, bilaterally, 18:50 ENT: External ear(s): are unremarkable, Nose: is normal, Mouth: Lips: dry, Oral mucosa: moist, Posterior pharynx: Airway: no evidence of obstruction, patent, 18:50 Neck: ROM/movement: is normal, is supple, without pain, no range of motions limitations, no meningismus, 18:50 Chest/axilla: Inspection: normal, 18:50 Cardiovascular: Rate: tachycardic, Rhythm: regular, 18:50 Respiratory: the patient does not display signs of respiratory distress, Respirations: labored breathing, is not present, Breath sounds: are clear throughout, no decreased breath sounds, no stridor, no wheezing, 18:50 Abdomen/GI: Inspection: distension, that is moderate, Bowel sounds: active, all quadrants, Palpation: soft, in all quadrants, moderate abdominal tenderness, in all quadrants, rebound tenderness, is not appreciated, voluntary guarding, is elicited in all quadrants, 18:50 Back: CVA tenderness, is absent, 18:50 Skin: cellulitis, is not appreciated, no rash present. Vital Signs: 18:27 BP 133 / 98; Pulse 114; Resp 20; Temp 97.6; Pulse Ox 100% on R/A; Weight 56.7 kg; ap3 Height 5 ft. 6 in. ; 19:00 BP 130 / 93; Pulse 118; Resp 17; Pulse Ox 99% ; me1 20:00 BP 124 / 85; Pulse 107; Resp 16; Pulse Ox 97% ; me1 22:23 BP 123 / 83; Pulse 128; Resp 18; Pulse Ox 99% ; kt5 23:20 BP 118 / 68; Pulse 102; Resp 18; Pulse Ox 100% ; kt5 05/24 01:54 BP 118 / 66; Pulse 122; Resp 18; Pulse Ox 100% ; vc1 05/23 18:27 Body Mass Index 20.18 (56.70 kg, 167.64 cm) ap3 MDM: 05/23 18:28 Medical Screening Exam initiated cp 05/24 01:20 Data reviewed: vital signs, nurses notes, lab test result(s), radiologic studies, CT cp scan, I have discussed the patient's presentation/case with the attending Emergency Department Physician; and as a result, I will admit patient. 01:20 I considered the following discharge prescriptions or medication management in the emergency department Medications were administered in the Emergency Department. See MAR. Counseling: I had a detailed discussion with the patient and/or guardian regarding the historical points, exam findings, and any diagnostic results supporting the discharge/admit diagnosis, lab results, radiology results, the need for further work-up and treatment in the hospital. Response to treatment: the patient's symptoms have mildly improved after treatment, a significant bowel movement not observed after treatment. will admit to service of hospitalist and consult general surgery. 05/23 18:32 Order name: CBC with Diff; Complete Time: 19:50 cp 05/23 18:32 Order name: CMP; Complete Time: 19:50 cp 05/23 18:32 Order name: Lipase; Complete Time: 19:50 cp 05/23 18:46 Order name: Test, Serum; Complete Time: 19:50 me1 05/24 01:42 Order name: CBC with Automated Diff EDMS 05/24 01:42 Order name: CBC with Automated Diff EDMS 05/24 01:42 Order name: Comprehensive Metabolic Panel EDMS 05/24 01:42 Order name: Comprehensive Metabolic Panel EDMS 05/24 01:42 Order name: Magnesium EDMS 05/24 01:42 Order name: Magnesium EDMS 05/24 01:42 Order name: Phosphorus EDMS 05/24 01:42 Order name: Phosphorus EDMS 05/23 20:05 Order name: CT Head Brain wo Cont; Complete Time: 23:25 cp 05/23 20:05 Order name: CT Abd/Pelvis - IV Contrast Only; Complete Time: 23:25 cp 05/23 20:05 Order name: XRAY Chest (1 view); Complete Time: 23:25 cp 05/24 01:42 Order name: CONS Physician Consult EDMS 05/23 18:32 Order name: IV Saline Lock; Complete Time: 18:46 cp 05/23 18:32 Order name: Labs collected and sent; Complete Time: 18:46 cp Administered Medications: 05/23 18:56 Drug: NS 0.9% IV 1000 ml IV at 1000 ml once; to be given as a bolus over 60 minutes me1 Route: IV; Rate: 1000 ml; Site: right antecubital; 18:57 Drug: metoCLOPramide IVP 10 mg IVP once; over 1 to 2 minutes Route: IVP; Site: right me1 antecubital; 19:19 Follow up: Response: No adverse reaction; Nausea is decreased me1 18:57 Drug: diphenhydrAMINE IVP 25 mg IVP once Route: IVP; Site: right antecubital; me1 19:19 Follow up: Response: No adverse reaction me1 19:19 Drug: morphine IVP or IV 4 mg IVP once over 4 mins Route: IVP; Infused Over: 4 mins; me1 Site: right antecubital; 20:01 Follow up: Response: No adverse reaction; Pain is decreased me1 22:20 Drug: NS 0.9% IV 1000 ml IV at 1000 ml once; to be given as a bolus over 60 minutes kt5 Route: IV; Rate: 1000 ml; Site: right antecubital; 05/24 03:10 Follow up: IV Status: Completed infusion; IV Intake: 1000ml 1 05/23 22:20 Drug: Dulcolax MT Suppository 10 mg MT once Route: MT; kt5 05/24 02:00 Follow up: Response: No change in condition vc1 05/23 22:20 Drug: Lactulose PO 30 grams 45 ml PO once Volume: 45 ml; Route: PO; kt5 05/24 00:00 Follow up: Response: No change in condition vc1 00:24 Drug: Fleet Enema MT 133 ml MT once Route: MT; vc1 02:00 Follow up: Response: No change in condition vc1 01:32 Drug: NS 0.9% IV 1000 ml IV at 100 ml/hr continuous Route: IV; Rate: 100 ml/hr; Site: vc1 right antecubital; 02:45 Follow up: IV Status: Infusion continued upon admission vc1 Disposition Summary: 05/24/25 01:25 Hospitalization Ordered Notes: Hospitalization Status: Observation cp Provider: Navin Whitmore cp Location: Telemetry/MedSurg (observation) cp Condition: Stable cp Problem: new cp Symptoms: are unchanged cp Bed/Room Type: Standard cp Room Assignment: 228(05/24/25 01:46) rv1 Diagnosis - Severe Fecal Impaction of Colon cp Forms: - Medication Reconciliation Form cp - SBAR form cp - Leadership Thank You Letter cp Addendum: 05/25/2025 07:44 Co-signature as Attending Physician, Mode Victor MD I agree with the assessment and c simon plan of care. Signatures: Dispatcher [employer] Mode Flores MD MD cha Page, Corey, PA-C PA-C Joy Caldwell, RN RN ap3 Kim Napier RN RN vc1 Shari Mayorga rv1 Magaly Armenta RN RN me1 Jane Romero RN RN kt5 Corrections: (The following items were deleted from the chart) 05/24 00:24 05/23 23:57 Misc. Order ordered. alba catalan1 05/24 01:15 05/23 18:33 Test, Urine+UC.LAB.BRZ ordered. [facility] 05/24 01:46 01:25 alba rv1
--- NOTE | 2025-05-24 01:25 | ER ---
Nurse's Notes [facility] Name: Elizabeth Devlin Age: 19 yrs Sex: Female : 2005 Arrival Date: 05/23/2025 Time: 18:19 Bed 9 Private MD: Diagnosis: Severe Fecal Impaction of Colon Presentation: 05/23 18:27 Chief complaint: EMS states: Mother reports that pt recently had a stomach, bug, ap3 started eating solid foods again yesterday, "Today after lunch (chicken), she seemed uncomfortable and was pointing to her chest and throat. I don't know if she maybe swallowed a bone." Pt intellectually delayed w/ limited communication, stated upon triage that her "stomach hurts and she ate too much.". Coronavirus screen: At this time, the client does not indicate any symptoms associated with coronavirus-19. Ebola Screen: No symptoms or risks identified at this time. Initial Sepsis Screen: Does the patient meet any 2 criteria? No. Patient's initial sepsis screen is negative. Does the patient have a suspected source of infection? No. Patient's initial sepsis screen is negative. Risk Assessment: Do you want to hurt yourself or someone else? Patient reports no desire to harm self or others. Onset of symptoms was May 23, 2025. 18:27 Method Of Arrival: EMS: [facility] ap3 18:27 Acuity: HARIS 3 ap3 Triage Assessment: 18:36 General: Appears in no apparent distress. comfortable, Behavior is calm, cooperative. ph Pain: Complains of pain in abdomen. Neuro: Level of Consciousness is awake, alert, obeys commands. Cardiovascular: Capillary refill < 3 seconds in bilateral fingers Patient's skin is warm and dry. Respiratory: Airway is patent Respiratory effort is even, unlabored. GI: Abdomen is non-distended. 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 - Infectious Disease History:: Denies. - Social history:: Smoking status: Patient denies any tobacco usage or history of. Screenin:40 [facility] ED Fall Risk Assessment (Adult) History of falling in the last 3 months, me1 including since admission No falls in past 3 months (0 pts) Confusion or Disorientation No (0 pts) Intoxicated or Sedated No (0 pts) Impaired Gait No (0 pts) Mobility Assist Device Used No (0 pt) Altered Elimination No (0 pt) Score/Fall Risk Level 0 - 2 = Low Risk Maintained a safe environment, Provided non-skid footwear, Hourly rounding (assess needs \\T\\ fall precautionary measures) done. Abuse screen: Denies threats or abuse. Nutritional screening: No deficits noted. Tuberculosis screening: No symptoms or risk factors identified. Assessment: 18:40 General: Appears in no apparent distress. well groomed, well nourished, Behavior is me1 calm, cooperative, appropriate for age. Pain: Denies pain. Neuro: Level of Consciousness is awake, alert, obeys commands, Oriented to person, place, time, situation, Appropriate for age. Cardiovascular: Patient's skin is warm and dry. Respiratory: Airway is patent Respiratory effort is even, unlabored, Respiratory pattern is regular, symmetrical. GI: Abdomen is non-distended, Bowel sounds present X 4 quads. Abd is soft X 4 quads Patient currently denies pain, at this time but did report abdominal pain earlier to mother and to triage nurse. Patient is intellectually delayed and mother is unsure if the patient is really feeling better, concerned she may not understand when she says she isnt hurting. : No signs and/or symptoms were reported regarding the genitourinary system. EENT: No signs and/or symptoms were reported regarding the EENT system. Derm: Skin is intact, is healthy with good turgor, Skin is normal. Musculoskeletal: Circulation, motion, and sensation intact. Range of motion: intact in all extremities. 21:34 General: received report from junior staff accountant magaly, all questions answered. kt5 22:23 Reassessment: Patient appears in no apparent distress at this time. No changes from kt5 previously documented assessment. Patient and/or family updated on plan of care and expected duration. Pain level reassessed. Patient is alert, oriented x 3, equal unlabored respirations, skin warm/dry/pink. 23:20 Reassessment: Patient appears in no apparent distress at this time. No changes from kt5 previously documented assessment. Patient and/or family updated on plan of care and expected duration. Pain level reassessed. Patient is alert, oriented x 3, equal unlabored respirations, skin warm/dry/pink. positive large bm, provider aware Patient states feeling better. Patient states symptoms have improved. 23:56 General: report given to junior staff accountant, all questions answered. kt5 05/24 02:00 Reassessment: Patient appears in no apparent distress at this time. No changes from vc1 previously documented assessment. Patient and/or family updated on plan of care and expected duration. Pain level reassessed. Patient is alert, oriented x 3, equal unlabored respirations, skin warm/dry/pink. Vital Signs: 05/23 18:27 BP 133 / 98; Pulse 114; Resp 20; Temp 97.6; Pulse Ox 100% on R/A; Weight 56.7 kg; ap3 Height 5 ft. 6 in. ; 19:00 BP 130 / 93; Pulse 118; Resp 17; Pulse Ox 99% ; me1 20:00 BP 124 / 85; Pulse 107; Resp 16; Pulse Ox 97% ; me1 22:23 BP 123 / 83; Pulse 128; Resp 18; Pulse Ox 99% ; kt5 23:20 BP 118 / 68; Pulse 102; Resp 18; Pulse Ox 100% ; kt5 05/24 01:54 BP 118 / 66; Pulse 122; Resp 18; Pulse Ox 100% ; vc1 05/23 18:27 Body Mass Index 20.18 (56.70 kg, 167.64 cm) ap3 ED Course: 05/23 18:26 Patient arrived in ED. ap3 18:28 Mode Silva PA-C is PHCP. cp 18:28 Mode Victor MD is Attending Physician. cp 18:32 Triage completed. ap3 18:34 Magaly Armenta, RN is Primary Nurse. me1 18:36 Arm band placed on Patient placed in an exam room, on a stretcher, on pulse oximetry. ph 18:40 Patient has correct armband on for positive identification. Bed in low position. Call me1 light in reach. Side rails up X2. Adult w/ patient. Provided Education on: POC. Verbalized understanding.. Client placed on continuous cardiac and pulse oximetry monitoring. NIBP monitoring applied. Pulse ox on. NIBP on. 18:40 No provider procedures requiring assistance completed. Initial lab(s) drawn, by wy, me1 sent to lab. Inserted saline lock: 22 gauge in right antecubital area, using aseptic technique. 18:46 CBC with Diff Sent. me1 18:46 CMP Sent. me1 18:46 Lipase Sent. me1 21:07 CT Head Brain wo Cont In Process Unspecified. EDMS 21:07 CT Abd/Pelvis - IV Contrast Only In Process Unspecified. EDMS 21:14 XRAY Chest (1 view) In Process Unspecified. EDMS 05/24 01:23 Navin Whitmore MD is Hospitalizing Provider. 02:45 Patient admitted, IV remains in place. vc1 Administered Medications: 05/23 18:56 Drug: NS 0.9% IV 1000 ml IV at 1000 ml once; to be given as a bolus over 60 minutes me1 Route: IV; Rate: 1000 ml; Site: right antecubital; 18:57 Drug: metoCLOPramide IVP 10 mg IVP once; over 1 to 2 minutes Route: IVP; Site: right me1 antecubital; 19:19 Follow up: Response: No adverse reaction; Nausea is decreased [facility] 18:57 Drug: diphenhydrAMINE IVP 25 mg IVP once Route: IVP; Site: right antecubital; [facility] 19:19 Follow up: Response: No adverse reaction [facility] 19:19 Drug: morphine IVP or IV 4 mg IVP once over 4 mins Route: IVP; Infused Over: 4 mins; [facility] Site: right antecubital; 20:01 Follow up: Response: No adverse reaction; Pain is decreased [facility] 22:20 Drug: NS 0.9% IV 1000 ml IV at 1000 ml once; to be given as a bolus over 60 minutes kt5 Route: IV; Rate: 1000 ml; Site: right antecubital; 05/24 03:10 Follow up: IV Status: Completed infusion; IV Intake: 1000ml vc1 05/23 22:20 Drug: Dulcolax IL Suppository 10 mg IL once Route: IL; kt5 05/24 02:00 Follow up: Response: No change in condition vc1 05/23 22:20 Drug: Lactulose PO 30 grams 45 ml PO once Volume: 45 ml; Route: PO; kt5 05/24 00:00 Follow up: Response: No change in condition vc1 00:24 Drug: Fleet Enema IL 133 ml IL once Route: IL; vc1 02:00 Follow up: Response: No change in condition vc1 01:32 Drug: NS 0.9% IV 1000 ml IV at 100 ml/hr continuous Route: IV; Rate: 100 ml/hr; Site: vc1 right antecubital; 02:45 Follow up: IV Status: Infusion continued upon admission vc1 Medication: 05/23 18:40 VIS not applicable for this client. me1 Intake: 05/24 03:10 IV: 1000ml; Total: 1000ml. vc1 Outcome: 01:25 Decision to Hospitalize by Provider. cp 02:40 Condition: stable vc1 02:40 Admitted to Med/surg accompanied by tech, via stretcher, room 228, vc1 02:40 Instructed on the need for admit, 02:45 Patient left the ED. vc1 Signatures: Dispatcher [employer] Sarah Obrien RN RN ph Page, Corey, PA-C PA-C Joy Caldwell RN RN ap3 Kim Napier RN RN vc1 Magaly Armenta RN RN wy1 Jane Romero RN RN kt5 Corrections: (The following items were deleted from the chart) 05/23 18:33 18:27 Chief complaint: EMS states: Mother reports that pt recently had a stomach, bug, ap3 started eating solid foods again yesterday, "Today after lunch (chicken), she seemed uncomfortable and was pointing to her chest and throat. I don't know if she maybe swallowed a bone." Pt autistic w/ limited communication, stated upon triage that her "stomach hurts and she ate too much." ap3 20:18 18:27 Chief complaint: EMS states: Mother reports that pt recently had a stomach, bug, me1 started eating solid foods again yesterday, "Today after lunch (chicken), she seemed uncomfortable and was pointing to her chest and throat. I don't know if she maybe swallowed a bone." Pt intellectually delayed w/ limited communication, stated upon triage that her "stomach hurts and she ate too much." ap3 05/24 03:11 03:08 Patient left the ED. vc1 vc1
[2025-05-24] MEDS ORDERED: ONDANSETRON 4 MG/2 ML VIAL IV PRN (01:37)
[2025-05-24] MEDS ORDERED: ACETAMINOPHEN 325 MG TABLET PO PRN (01:37)
[2025-05-24] MEDS ORDERED: ALBUTEROL 2.5 MG/3 ML NEB SOL NEB PRN (01:37)
--- NOTE | 2025-05-24 01:37 | P.HP ---
Certification for Inpatient Patient admitted to: Observation With expected LOS: <2 Midnights Practitioner: I am a practitioner with admitting privileges, knowledge of patient current condition, hospital course, and medical plan of care. Services: Services provided to patient in accordance with Admission requirements found in Title 42 Section 412.3 of the Code of Federal Regulations Patient History Date of Service: 05/24/25 Reason for admission: Abdominal pain History of Present Illness: 19-year-old female with past medical history of asthma, intellectual delay who was brought to ER with abdominal pain. Patient is a poor historian hence most of the history is obtained from the chart review and also talking to the ER physician and family at the bedside. Started having abdominal pain 2 days ago and has been progressively getting worse. Denies any nausea vomiting. Constipated for the last few days. No fever or chills. Patient was assessed in the ER and was had a CT which showed fecal impaction severe and was admitted for further management Allergies No Known Allergies Allergy (Verified 05/24/25 03:01) Home medications list reviewed: Yes - Past Medical/Surgical History Past Medical History: Reviewed- Non-Contributory -: Asthma -: Intellectual delay Past Surgical History: Reviewed- Non-Contributory - Family History Family History: Reviewed- Non-Contributory - Social History Smoking Status: Never smoker Review of Systems is unable to be obtained Physical Examination - Vital Signs Temperature: 97.2 F Blood Pressure: 110/70 Pulse: 82 Respirations: 18 Pulse Ox (%): 96 - Physical Exam General: Alert, In no apparent distress, Cooperative HEENT: Atraumatic, Normocephalic Neck: Supple Respiratory: Clear to auscultation bilaterally, Normal air movement Cardiovascular: Regular rate/rhythm, Normal S1 S2 Capillary refill: <2 Seconds Gastrointestinal: Soft and benign, W/out hepatosplenomegaly, Distended, Tenderness Musculoskeletal: No clubbing, No swelling Integumentary: No rashes, No tenderness/swelling Neurological: Other (Alert awake nonfocal) Lymphatics: No axilla or inguinal lymphadenopathy - Studies Laboratory Data (last 24 hrs) 05/23/25 05/23/25 18:43 18:43 WBC 5.50 Hgb 14.2 Hct 42.0 Plt Count 268 Sodium 140 Potassium 3.3 L BUN 9 Creatinine 0.81 Glucose 120 H Total Bilirubin 0.8 AST < 10 L ALT 15 Alkaline Phosphatase 66 Lipase 38 Assessment and Plan - Plan Fecal impaction Abdominal pain Pain control Bowel regimen Patient received enema in ER without much benefit Surgical consult Hypokalemia Electrolytes monitor and replace accordingly Asthma Intellectual delay Supportive management Bronchodilators as needed GI/DVT prophylaxis Advanced directive full code Discharge Plan: Home Plan to discharge in: 48 Hours - Advance Directives Does patient have a Living Will: No Does patient have a Durable POA for Healthcare: No - Code Status/Comfort Care Code Status: Full Code Time Spent Managing Pts Care (In Minutes): 48
[2025-05-24] MEDS: D5 0.45 NS 1,000 ML IV SCH (02:00)
[2025-05-24 03:02] VITALS: BMI 19.4
[2025-05-24] MEDS ORDERED: BISACODYL 10 MG RECTAL SUPP PR PRN (03:03)
[2025-05-24] MEDS ORDERED: KETOROLAC 30 MG/ML INJ IV PRN (03:04)
[2025-05-24 03:50] VITALS: O2SAT 99
[2025-05-24 07:52] LABS: Anion Gap 9.5 mEq/L (5.0-15.0); BUN Blood Urea Nitrogen 4.0 mg/dL (7-18); Glucose Level 97.0 mg/dL (74-106); Magnesium 1.9 mg/dL (1.6-2.4); Potassium 3.5 mEq/L (3.5-5.1)
[2025-05-24] MEDS ORDERED: INFLUENZA VACCINE (for 6+ mo) 0.5 ML DOSE IMVAC ONE (08:00)
--- NOTE | 2025-05-24 08:03 | RAD REPORT ---
Exam:Abdomen Single View Clinical history: Abdominal pain FINDINGS: Large amount of stools present throughout the colon. Rectum is distended with stool measuring 9 cm. T his may represent a fecal impaction. Air is present within nondilated small bowel.
[2025-05-24] MEDS: LACTULOSE 20 GM/30 ML UCUP PO PRN (09:49)
--- NOTE | 2025-05-24 10:48 | CON ---
Date of Consultation: 05/24/2025 Reason: Fecal impaction. History Of Present Illness: The patient is a 19-year-old female who is mentally challenged, came to the emergency room with severe constipation, not having had a bowel movement for few days and complai ruiz of abdominal pain, which has been progressively getting worse. There is no history of nausea or vomiting that was documented. The patient is unable to provide any review of systems. Review of Systems: Otherwise unremarkable. Past Medical History: Asthma, intellectual delay. Allergies: NONE. Social History: The patient does not smoke or drink alcohol. Family History: Noncontributory. Physical Examination: Vital Signs: Stable. She is afebrile. She is awake. Head and Neck: No masses. Chest: Clear. Heart: S1, S2. Abdomen: Soft, nondistended, nontender. Positive bowel sounds. Extremities: Neurovascularly intact. Neuro: Nonfocal. Laboratory Data: White count is normal. There is no left shift. Chemistry is essentially unremarka ble. The patient had a CAT scan done yesterday, which showed fecal impaction at the rectosigmoid stella ction and rectal exam done in the emergency room evacuated a small amount of stool. She has abdomina l x-ray done this morning, which shows large amount of stool throughout the rectum. Rectum is disten ded with stool measuring 9 cm. This may represent fecal impaction. Air is present within a nondilat ed small bowel. While I was evaluating the patient, patient was on the toilet and had a large bowel movement and had no pain. The x-ray was done before her bowel movement. Assessment: Fecal impaction, improved. Recommendations: High-fiber diet, stool softeners, increase fiber in the diet. The patient if tara ates regular diet and continues to have no pain and continues to have bowel movements, patient can be discharged home today. Plan of care discussed with the hospitalist team. LAWRENCE/MODL Voice ID: [id number] Report ID: [id number]
[2025-05-24 16:13] VITALS: BP 121/73; TEMP 97.7
--- NOTE | 2025-05-24 16:26 | P.DS ---
Admission Date: 05/24/25 Discharge Date: 05/24/25 Disposition: ROUTINE DISCHARGE Discharge Condition: FAIR Reason for Admission: Abdominal pain Brief History of Present Illness: 19-year-old female with past medical history of asthma, intellectual delay who was brought to ER with abdominal pain of 2 days duration. Mother also reported no BM for a few days. Patient was assessed in the ER and was had a CT which showed fecal impaction. Patient was admitted for further management. Hospital Course: Diagnosis Functional constipation Fecal impaction Chronic sinus tachycardia Patient placed in the observation medical floor and treated with lactulose and bisacodyl suppositories. She had multiple large bowel movements and abdominal pain resolved. Patient seen and evaluated by surgery Dr. Arreola who has cleared patient for discharge. Patient is prescribed Senokot daily for constipation prophylaxis, MiraLAX and bisacodyl as needed for constipation. Vital Signs/Physical Exam: Temp Pulse Resp BP Pulse Ox 97.7 F 110 H 14 121/73 98 05/24/25 16:00 05/24/25 16:00 05/24/25 16:00 05/24/25 16:00 05/24/25 16:00 General: Alert, In no apparent distress, Oriented x3 HEENT: Mucous membr. moist/pink Neck: Supple, JVD not distended Respiratory: Clear to auscultation bilaterally, Normal air movement Cardiovascular: No edema, Normal S1 S2, Other (Tachycardia) Gastrointestinal: Normal bowel sounds, Soft and benign, Non-distended, No tenderness Musculoskeletal: No swelling Integumentary: No rashes, No cyanosis Laboratory Data at Discharge: WBC 5.50 thou/uL (4.3-10.9) 05/23/25 18:43 Hgb 14.2 g/dL (12.0-15.0) 05/23/25 18:43 Hct 42.0 % (36.0-45.0) 05/23/25 18:43 Plt Count 268 thou/uL (152-406) 05/23/25 18:43 Sodium 141 mEq/L (136-145) 05/24/25 07:21 Potassium 3.5 mEq/L (3.5-5.1) 05/24/25 07:21 BUN 4 mg/dL (7-18) L 05/24/25 07:21 Creatinine 0.58 mg/dL (0.55-1.02) 05/24/25 07:21 Glucose 97 mg/dL (74-106) 05/24/25 07:21 Phosphorus 3.8 mg/dL (2.5-4.9) 05/24/25 07:21 Magnesium 1.9 mg/dL (1.6-2.4) 05/24/25 07:21 Total Bilirubin 0.8 mg/dL (0.2-1.0) 05/23/25 18:43 AST < 10 U/L (15-37) L 05/23/25 18:43 ALT 15 U/L (13-56) 05/23/25 18:43 Alkaline Phosphatase 66 U/L (45-117) 05/23/25 18:43 Lipase 38 U/L (13-75) 05/23/25 18:43 Home Medications: Bisacodyl [Dulcolax*] 10 mg CA DAILY PRN #30 supp 05/24/25 Montelukast Sodium [Singulair] 5 mg PO BEDTIME 05/24/25 Polyethylene Glycol 3350 [Miralax] 17 gm PO DAILY PRN #30 packet 05/24/25 Senna Donnybrook Extract [Senokot Kids] 17.2 mg PO BID #120 tab.chew 05/24/25 New Medications: Bisacodyl [Dulcolax*] 10 mg CA DAILY PRN #30 supp PRN Reason: CONSTIPATION try first Polyethylene Glycol 3350 [Miralax] 17 gm PO DAILY PRN #30 packet PRN Reason: Constipation Senna Donnybrook Extract [Senokot Kids] 17.2 mg PO BID #120 tab.chew Followup: NONE,NONE [Primary Care Provider] - 1-2 Weeks Time spent managing pt's care (in minutes): 33
[2025-05-24] MEDS: INFLUENZA VACCINE (for 6+ mo) 0.5 ML DOSE IMVAC ONE (18:00)
--- NOTE | 2025-05-24 19:02 | RAD REPORT ---
EXAM: XR Abdomen 1 View (KUB) HISTORY: Follow-up fecal retention COMPARISON: Abdomen radiograph of earlier the same day FINDINGS: Single view of the abdomen shows a nonspecific, nonobstructive bowel gas pattern. No suspi cious calcifications are seen. The bones are unremarkable. IMPRESSION: Unremarkable exam
== END 2025-05-24 18:40 | disposition home or self-care (01) ==
LOC: ER 18:19 → 2ND 05-24 01:31
PROVIDERS: ADMIT Family Medicine; ATTEND Internal Medicine
DX: K56.41 Fecal impaction (principal); J45.909 Unspecified asthma, uncomplicated; R00.0 Tachycardia, unspecified; F81.9 Developmental disorder of scholastic skills, unspecified; E87.6 Hypokalemia
CPT/HCPCS: 96361; 85025; 80048; 36415; 83735; 84703; 84100; 83690; 80053; 70450; 74177; 74018 ×2; 71045; 90471; 96375; 96374; 99285; Q9967; J2765; J1200; J7799; J7030 ×3; G0378

== ENCOUNTER 2025-05-31 16:26 | Emergency (ER) | payer OTHER ==
[2025-05-31] MEDS ORDERED: LACTULOSE 20 GM/30 ML UCUP ONE (18:48)
[2025-05-31] MEDS ORDERED: BISACODYL 10 MG RECTAL SUPP ONE (18:48)
[2025-05-31] MEDS ORDERED: FLEET ENEMA ADULT PR ONE (18:48)
[2025-05-31 19:11] LABS: Anion Gap 9.9 mEq/L (5.0-15.0); BUN Blood Urea Nitrogen 9.0 mg/dL (7-18); Glucose Level 85.0 mg/dL (74-106); Potassium 3.9 mEq/L (3.5-5.1)
[2025-05-31 19:34] LABS: Absolute Lymphocytes (CBC) 2.4 K/uL (0.7-4.9); Hematocrit 41.8 % (36.0-45.0); Hemoglobin 14.0 g/dL (12.0-15.0); MCH 30.3 pg (27.0-35.0); MCHC 33.5 g/dL (32.0-36.0); MCV 90.4 fL (80-100); MPV 8.1 fL (7.6-11.3); Nucleated RBC Absolute Count 0.0 (0-0); Nucleated Red Blood Cells % 0.2 % (0-0); RBC Red Blood Cell Count 4.63 M/uL (3.86-4.86); White Blood Count 4.70 thou/uL (4.3-10.9)
--- NOTE | 2025-05-31 20:31 | RAD REPORT ---
EXAMINATION: Abdomen Pelvis W Contrast CLINICAL INDICATION: Female, 19 years old.CONSTIPATION TECHNIQUE: CT abdomen and pelvis was performed, after the administration of IV contrast, as per [facility] protocol. Axial, sagittal and coronal reconstructions were obtained. One or more of the following dose reduction techniques were used: Automated exposure control, adjustment of the mA and/o r kV according to patient size, and/or iterative reconstruction. Unless otherwise specified, incidental findings do not require dedicated imaging follow-up. [id number]. COMPARISON: 05/23/2025 FINDINGS: LOWER CHEST: No acute process identified. No significant pericardial effusion. Mild circumferential t hickening of the distal esophagus which could reflect esophagitis. UPPER GI: No significant abnormality. LIVER: No significant focal abnormality. GALLBLADDER/BILE DUCTS: No biliary ductal dilatation.? PANCREAS: No mass, ductal dilation, or carolyn-pancreatic fluid. SPLEEN: Unremarkable. ADRENALS: No adrenal masses. KIDNEYS AND URETERS: No hydronephrosis. Limited evaluation for renal lesions in the absence of IV con trast. ABDOMINAL AORTA AND OTHER VESSELS: Normal caliber aorta and IVC. PERITONEUM: No abnormal free fluid. No free air. LYMPH NODES: No pathologic lymphadenopathy. ABDOMINAL WALL: Unremarkable SMALL BOWEL/COLON: Large colonic stool burden, particularly at the sigmoid and rectum. URINARY BLADDER: Underdistended but grossly unremarkable. REPRODUCTIVE ORGANS: No pathologic process. MUSCULOSKELETAL: No acute or suspicious osseous abnormality. ADDITIONAL FINDINGS: None. IMPRESSION: Large sigmoid and rectal stool burden could indicate fecal impaction.
[2025-05-31] MEDS ORDERED: NA CHLORIDE 0.9% 1,000 ML ONE (20:53)
[2025-05-31] MEDS ORDERED: LORazepam 2 MG/ML VIAL ONE (23:15)
--- NOTE | 2025-06-01 00:31 | ER ---
Nurse's Notes [facility] Name: Elizabeth Devlin Age: 19 yrs Sex: Female : 2005 Arrival Date: 05/31/2025 Time: 16:26 Bed 15 Private MD: Diagnosis: Fecal impaction;Constipation Presentation: 05/31 16:35 Chief complaint: Parent and/or Guardian states: last BM was a week ago. Mom has given me1 dulcolax and miralax with no relief. Coronavirus screen: At this time, the client does not indicate any symptoms associated with coronavirus-19. Ebola Screen: No symptoms or risks identified at this time. 16:35 [place] [facility] [place] Initial Sepsis Screen: Does the patient meet any 2 criteria? HR > 90 bpm. Does the nm1 patient have a suspected source of infection? No. Patient's initial sepsis screen is negative. Risk Assessment: Do you want to hurt yourself or someone else? Patient reports no desire to harm self or others. Onset of symptoms is unknown. 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 - Infectious Disease History:: Denies. - Social history:: Smoking status: Patient denies any tobacco usage or history of. Screenin:45 [facility] ED Fall Risk Assessment (Adult) History of falling in the last 3 months, ar8 including since admission No falls in past 3 months (0 pts) Confusion or Disorientation No (0 pts) Intoxicated or Sedated No (0 pts) Impaired Gait No (0 pts) Mobility Assist Device Used No (0 pt) Altered Elimination No (0 pt) Score/Fall Risk Level 0 - 2 = Low Risk Oriented to surroundings, Maintained a safe environment. Abuse screen: Denies threats or abuse. Nutritional screening: No deficits noted. Tuberculosis screening: No symptoms or risk factors identified. Assessment: 18:36 Reassessment: Patient placed in ED room from [facility]. ar8 18:45 General: Appears in no apparent distress. Behavior is cooperative. ar8 18:45 Pain: Denies pain. Neuro: Level of Consciousness is awake, alert, obeys commands, ar8 Oriented to Appropriate for age. Cardiovascular: Patient's skin is warm and dry. Rhythm is sinus tachycardia. Respiratory: Airway is patent Respiratory effort is even, unlabored, Respiratory pattern is regular, symmetrical. GI: Abdomen is round Abd is non tender firm Parent/caregiver reports the patient having constipation, last BM 05-24-25. : No signs and/or symptoms were reported regarding the genitourinary system. 19:20 General: Appears uncomfortable, Behavior is calm, cooperative. Pain: Denies pain. ha1 Neuro: Level of Consciousness is awake, alert, obeys commands, Oriented to person. Cardiovascular: Capillary refill < 3 seconds Patient's skin is warm and dry. Respiratory: Airway is patent Respiratory effort is even, unlabored, Respiratory pattern is regular, symmetrical. GI: Abdomen is round non-distended, Bowel sounds present X 4 quads. Abd is non tender X 4 quads Parent/caregiver reports the patient having constipation. : No signs and/or symptoms were reported regarding the genitourinary system. Derm: Skin is normal. Musculoskeletal: Circulation, motion, and sensation intact. 20:01 Reassessment: Patient and/or family updated on plan of care and expected duration. Pain ha1 level reassessed. 21:08 Reassessment: Patient and/or family updated on plan of care and expected duration. Pain ha1 level reassessed. 22:00 Reassessment: Patient and/or family updated on plan of care and expected duration. Pain ha1 level reassessed. 22:00 Respiratory: Airway is patent Respiratory effort is even, unlabored, Respiratory ha1 pattern is regular, symmetrical. 06/01 00:45 Reassessment: Patient and/or family updated on plan of care and expected duration. Pain ha1 level reassessed. HAD A LARGE BOWEL MOVEMENT. 01:00 Reassessment: Patient and/or family updated on plan of care and expected duration. Pain ha1 level reassessed. PROVIDED EDUCATION ON PREVENTING CONSTIPATION. Vital Signs: 05/31 16:35 BP 120 / 87; Pulse 107; Resp 18; Temp 98.1; Pulse Ox 100% ; Weight 56.7 kg; Height 5 me1 ft. 6 in. ; 18:45 BP 128 / 90; Pulse 107; Resp 22; Pulse Ox 99% on R/A; Pain 0/10; ar8 20:00 BP 116 / 90; Pulse 110; Resp 19 S; Pulse Ox 99% on R/A; ha1 21:00 BP 111 / 87; Pulse 107; Resp 18 S; Pulse Ox 99% on R/A; ha1 22:37 BP 117 / 92; Pulse 108; Resp 18 S; Pulse Ox 100% on R/A; ha1 23:30 BP 110 / 85; Pulse 103; Resp 20 S; Pulse Ox 100% on R/A; ha1 06/01 00:50 BP 127 / 65; Pulse 101; Resp 20 S; Pulse Ox 100% on R/A; ha1 05/31 16:35 Body Mass Index 20.18 (56.70 kg, 167.64 cm) me1 18:45 Pain Scale: Adult ar8 ED Course: 05/31 16:29 Patient arrived in ED. im 16:32 Hayden Prieto FNP-C is PHCP. dr5 16:32 Dinh Tineo MD is Attending Physician. dr5 16:38 Triage completed. me1 16:38 Arm band placed on Patient placed in waiting room. me1 16:47 Radiology exam delayed due to lab results not completed at this time. (HCG) jc4 (BUN/Creatinine) test not completed at this time. IV insertion attempt and/or patient not having appropriate IV at this time. 18:32 Guero Grimes, RN is Primary Nurse. ar8 18:45 Placed in gown. Bed in low position. Call light in reach. Side rails up X2. Provided ar8 Education on: plan of care. Client placed on continuous cardiac and pulse oximetry monitoring. NIBP monitoring applied. 18:45 No provider procedures requiring assistance completed. Initial lab(s) drawn, by nm, arStevan sent to lab. 18:49 Test, Serum Sent. ar8 18:49 BMP Sent. ar8 18:49 CBC with Diff Sent. ar8 19:35 Inserted saline lock: 22 gauge in left antecubital area, using aseptic technique. Blood ha1 collected. Flushed with 10 mL NS. 19:59 PHCP role handed off by Hayden Prieto FNP-C cp 19:59 Mode Silva PA-C is PHCP. cp 20:10 CT Abd/Pelvis - IV Contrast Only In Process Unspecified. EDMS 20:19 Primary Nurse role handed off by Guero Grimes, RN rv1 21:33 Nargis Barillas, MAGGIE is Primary Nurse. ss12 21:56 Inserted saline lock: 22 gauge in right antecubital area, using aseptic technique. vk Flushed with 10 mL NS. 22:44 Duran Guillory DO is Attending Physician. cp 06/01 00:30 Saleem Ortega, MAGGIE is Hospitalizing Provider. cp 01:15 IV discontinued, intact, bleeding controlled, No redness/swelling at site. Pressure ha1 dressing applied. Administered Medications: 05/31 18:53 Drug: Lactulose PO 30 grams 45 ml PO once Volume: 45 ml; Route: PO; ar8 06/01 01:13 Follow up: Response: No adverse reaction; Marked relief of symptoms ha1 05/31 19:17 Not Given (Patient Refused): dulcolaxsuppository 10 mg PA once ar8 21:30 Drug: NS 0.9% IV 1000 ml IV at 1000 ml once; to be given as a bolus over 60 minutes ha1 Route: IV; Rate: 1000 ml; Site: right antecubital; 23:00 Follow up: Response: No adverse reaction; IV Status: Completed infusion ha1 22:20 Not Given (PARENT REFUSED ): dulcolaxsuppository 10 mg PA once ha1 23:20 Drug: Ativan IVP 1 mg IVP once Route: IVP; Site: right antecubital; ss12 06/01 00:20 Follow up: Response: No adverse reaction; Marked relief of symptoms; Anxiety decreased ha1 05/31 23:38 Drug: Fleet Enema PA 133 ml PA once Route: PA; ha1 06/01 01:12 Follow up: Response: No adverse reaction; Marked relief of symptoms; HAD A LARGE BOWEL ha1 MOVEMENT 00:57 Not Given (Physician Discretion): ativan1 mg IVP once ha1 Medication: 05/31 18:45 VIS not applicable for this client. ar8 Intake: Outcome: 06/01 00:30 Decision to Hospitalize by Provider. cp 00:44 Discharge ordered by . cp 01:14 Discharged to home ambulatory, ha1 01:14 Condition: stable 01:14 Discharge instructions given to patient, family, Instructed on discharge instructions, follow up and referral plans. medication usage, Demonstrated understanding of instructions, follow-up care, medications, Prescriptions given X 1, 01:15 Patient left the ED. 1 Signatures: Dispatcher [employer] [facility] Mode Silva PA-C PA-C cp Ayala, Heidy, RN RN 1 Shari Mayorga rv1 Leslie Johnson Michelle, RN RN nm1 Kitty Pond Justin jc4 Hayden Prieto, CLOTH EXAMINER MACHINE-C CLOTH EXAMINER MACHINE-Cdr5 Nargis Barillas RN RN ss12 Guero Grimes RN RN ar8 Corrections: (The following items were deleted from the chart) 05/31 16:38 16:35 Chief complaint: Parent and/or Guardian states: last BM was a week. [place] [id number] 16:38 16:35 BP 120 / 87; Pulse 107bpm; Resp 18bpm; Pulse Ox 100%; Temp 98.1F; [place] [id number] 18:33 18:32 Reassessment: ar8 ar8 20:08 20:07 In radiology for Abdomen Pelvis W Con+CT.RAD.[facility]. [facility] EDNC 06/01 01:11 05/31 19:35 Inserted saline lock: 20 gauge in left antecubital area, using aseptic ha1 technique. Blood collected. Flushed with 10 mL NS ha1
--- NOTE | 2025-06-01 00:31 | EDPHYS ---
Physician Documentation [facility] Name: Elizabeth Devlin Age: 19 yrs Sex: Female : 2005 Arrival Date: 05/31/2025 Time: 16:26 Bed 15 Private MD: ED Physician Duran Guillory HPI: 05/31 18:26 This 19 yrs old Black Female presents to ER via Ambulatory with complaints of dr5 Constipation. 18:26 Onset: The symptoms/episode began/occurred last week. Patient is a 19-year-old female dr5 with history of asthma, intellectual and speech impediment disability coming in with 1 week of constipation. Mother reports that she has been trying to give her medications that were prescribed after discharge from hospital approximately a week ago. Mother states that she has not followed up with coal dumping equipment operator since discharge.. DOCUMENT IMAGE TECHNICIAN: 16:38 LMP N/A - Depo-provera, Not me1 Historical: - Allergies: 16:38 No Known Allergies; me1 - PMHx: 16:38 Asthma; Intellectual speech impediment disability; Can only take liquid medication; me1 - PSHx: 16:38 foot sx; me1 - Immunization history:: Adult Immunizations up to date. - Infectious Disease History:: Denies. - Social history:: Smoking status: Patient denies any tobacco usage or history of. ROS: 18:26 Constitutional: as per hpi dr5 Exam: 18:26 Constitutional: This is a well developed, well nourished patient who is awake, alert, dr5 and in no acute distress. Head/Face: Normocephalic, atraumatic. Eyes: Pupils equal round and reactive to light, extra-ocular motions intact. Lids and lashes normal. Conjunctiva and sclera are non-icteric and not injected. Cornea within normal limits. Periorbital areas with no swelling, redness, or edema. Neck: Trachea midline, no thyromegaly or masses palpated, and no cervical lymphadenopathy. Supple, full range of motion without nuchal rigidity, or vertebral point tenderness. No Meningismus. Chest/axilla: Normal chest wall appearance and motion. Nontender with no deformity. No lesions are appreciated. Cardiovascular: Regular rate and rhythm with a normal S1 and S2. Normal PMI, no JVD. No pulse deficits. Respiratory: Lungs have equal breath sounds bilaterally, clear to auscultation. No rales, rhonchi or wheezes noted. No increased work of breathing, no retractions or nasal flaring. Abdomen/GI: Soft, non-tender, non-distended Back: No spinal tenderness. No costovertebral tenderness. Full range of motion. Skin: Warm, dry with normal turgor. Normal color with no rashes, no lesions, and no evidence of cellulitis. MS/ Extremity: Pulses equal, no cyanosis. Neurovascular intact. Full, normal range of motion. Neuro: Awake and alert, GCS 15, oriented to person, place, time, and situation. Cranial nerves II-XII grossly intact. Motor strength 5/5 in all extremities. Sensory grossly intact. Cerebellar exam normal. Normal gait. Vital Signs: 16:35 BP 120 / 87; Pulse 107; Resp 18; Temp 98.1; Pulse Ox 100% ; Weight 56.7 kg; Height 5 me1 ft. 6 in. ; 18:45 BP 128 / 90; Pulse 107; Resp 22; Pulse Ox 99% on R/A; Pain 0/10; ar8 20:00 BP 116 / 90; Pulse 110; Resp 19 S; Pulse Ox 99% on R/A; ha1 21:00 BP 111 / 87; Pulse 107; Resp 18 S; Pulse Ox 99% on R/A; ha1 22:37 BP 117 / 92; Pulse 108; Resp 18 S; Pulse Ox 100% on R/A; ha1 23:30 BP 110 / 85; Pulse 103; Resp 20 S; Pulse Ox 100% on R/A; ha1 06/01 00:50 BP 127 / 65; Pulse 101; Resp 20 S; Pulse Ox 100% on R/A; ha1 05/31 16:35 Body Mass Index 20.18 (56.70 kg, 167.64 cm) me1 18:45 Pain Scale: Adult ar8 MDM: 05/31 16:33 Medical Screening Exam initiated dr5 18:27 External Records Reviewed: Inpatient record: Previous inpatient record reviewed and dr5 patient had bowel movement after medications on her own and surgical intervention was not required.. 20:00 Transition of care: After a detail discussion of the patient's case, care is dr5 transferred to Mode Silva PA-C. 20:00 Differential diagnosis: UTI, bowel obstruction, fecal impaction, constipation. cp 10/25 00:43 Data reviewed: vital signs, nurses notes, lab test result(s), radiologic studies, CT cp scan, I have discussed the patient's presentation/case with the attending Emergency Department Physician;. 00:43 I considered the following discharge prescriptions or medication management in the emergency department Medications were administered in the Emergency Department. See MAR. Counseling: I had a detailed discussion with the patient and/or guardian regarding the historical points, exam findings, and any diagnostic results supporting the discharge/admit diagnosis, lab results, radiology results, to return to the emergency department if symptoms worsen or persist or if there are any questions or concerns that arise at home. Response to treatment: the patient's symptoms have markedly improved after treatment, mother reports observing patient have multiple large bowel movements in restroom while in ED, and as a result, I will discharge patient. 05/31 16:44 Order name: CBC with Diff; Complete Time: 19:44 dr5 05/31 16:44 Order name: BMP; Complete Time: 19:12 dr5 05/31 16:45 Order name: Test, Serum; Complete Time: 19:44 dr5 05/31 16:45 Order name: CT Abd/Pelvis - IV Contrast Only; Complete Time: 20:35 dr5 05/31 19:02 Order name: Misc. Order: RECOLLECT LAVENDER TOP; Complete Time: 19:27 rv1 Administered Medications: 05/31 18:53 Drug: Lactulose PO 30 grams 45 ml PO once Volume: 45 ml; Route: PO; ar8 06/01 01:13 Follow up: Response: No adverse reaction; Marked relief of symptoms ha1 05/31 19:17 Not Given (Patient Refused): dulcolaxsuppository 10 mg NH once ar8 21:30 Drug: NS 0.9% IV 1000 ml IV at 1000 ml once; to be given as a bolus over 60 minutes ha1 Route: IV; Rate: 1000 ml; Site: right antecubital; 23:00 Follow up: Response: No adverse reaction; IV Status: Completed infusion ha1 22:20 Not Given (PARENT REFUSED ): dulcolaxsuppository 10 mg NH once ha1 23:20 Drug: Ativan IVP 1 mg IVP once Route: IVP; Site: right antecubital; ss12 06/01 00:20 Follow up: Response: No adverse reaction; Marked relief of symptoms; Anxiety decreased ha1 05/31 23:38 Drug: Fleet Enema NH 133 ml NH once Route: NH; ha1 06/01 01:12 Follow up: Response: No adverse reaction; Marked relief of symptoms; HAD A LARGE BOWEL ha1 MOVEMENT 00:57 Not Given (Physician Discretion): ativan1 mg IVP once ha1 Disposition: 01:52 Co-signature as Attending Physician, Duran ZAVALA reviewed the patient's care tt7 provided by the Advanced Practice Provider and agree with the diagnosis and treatment plan. Disposition Summary: 06/01/25 00:44 Discharge Ordered Notes: Location: Home(06/01/25 00:44) cp Problem: an ongoing problem(06/01/25 00:44) cp Symptoms: have improved(06/01/25 00:44) cp Condition: Stable(06/01/25 00:44) cp Diagnosis - Fecal impaction(06/01/25 00:44) cp - Constipation(06/01/25 00:44) cp Followup: cp - With: Private Physician - When: 2 - 3 days - Reason: Recheck today's complaints Discharge Instructions: - Discharge Summary Sheet cp - Constipation, Adult cp - Fecal Impaction cp Forms: - Medication Reconciliation Form cp - Antibiotic Education cp - Prescription Opioid Use cp - Patient Portal Instructions cp - Leadership Thank You Letter cp Prescriptions: - Lactulose 10 gram/15 mL Oral solution - take 30 milliliters ORAL route once daily As needed for constipation; 300 cp milliliter; Refills: 0, Product Selection Permitted Signatures: Dispatcher [employer] EDMT Mode Silva PA-C PA-C cp Katja Dalton RN RN ha1 Shari Mayorga rv1 Magaly Armenta RN RN me1 Hayden Prieto, SHOOTING GALLERY OPERATOR-C SHOOTING GALLERY OPERATOR-Cdr5 Nargis Barillas RN RN ss12 Guero Grimes RN RN ar8 Duran Guillory DO DO tt7 Corrections: (The following items were deleted from the chart) 05/31 16:44 16:44 CBC+H.LAB.BRZ ordered. EDMS EDMS 16:44 16:44 BASIC METABOLIC PANEL+C.LAB.BRZ ordered. EDMS EDMS 20:08 19:59 Abdomen Pelvis W Con+CT.RAD.BRZ ordered. EDMS EDMS 06/01 00:30 Observation cp cp 00:30 Saleem Ortega cp cp 00:30 Telemetry/MedSurg (observation) cp cp 00:30 Stable cp cp 00:30 new cp cp 00:30 are unchanged cp cp 00:30 Standard cp cp 00:30 cp cp 00:30 Fecal impaction cp cp 00:30 Constipation cp cp
[2025-06-01 08:19] VITALS: TEMP 98.1
[2025-06-01 08:24] VITALS: O2SAT 100
[2025-06-01 08:26] VITALS: BP 127/65
== END 2025-06-01 01:15 | disposition home or self-care (01) ==
LOC: ER 16:26
DX: K56.41 Fecal impaction (principal)
CPT/HCPCS: 96361; 85025; 80048; 36415; 84703; 74177; 96374; 99284; Q9967; J7030